=== PATIENT | female | born 1945 | race Caucasian/White ===

== ENCOUNTER → 2020-08-16 | Outpatient (CLI) | payer MEDICARE, OTHER ==
[2019-11-11 14:44] VITALS: BP 106/59
[~2020-08-16] MED LIST: ACET500T68 PO; ALPR0.5T6 PO; CHOL40003 PO; CITA40TA5 PO; CLONAZEPAM1 MG PO; COLE1TAB2 PO; CRESTOR40 MG PO; DICL75TA PO; DICY10CA3 PO; DOXY100C2 PO; ESTR-113 PO; FENO145T3 PO; FENO43CA5 PO; FLECTOR1 EACH TD; LACT1CAP19 PO; LEVO75TA90 PO; LEVO88TA4 PO; LIDO700A4 TP; LORA10CA PO; MECL-75 PO; MELA5TAB20 PO; METF500T16 PO; METH5TAB2 PO; MONT10TA49 PO; NITR100C PO; OMEG1CAP2 PO; OMEP20TA63 PO; OMEP40CA45 PO; OXYB5TAB10 PO; OXYC20TA34 PO; OXYM30SP25 NS; PARO20TA3 PO; PITA2TAB2 PO; ROPI1TAB4 PO; ZOLP10TA4 PO; b12 shot IM
--- NOTE | 2020-08-16 15:59 | KCIC ---
EXAM: Chest, 2 views. HISTORY: Dyspnea. COMPARISON: 11/06/2019 FINDINGS: 2 views of the chest are obtained. There has been slight interval increase in lower lobe pr edominant multifocal interstitial infiltrate. There is no pleural effusion or pneumothorax. The heart is normal in size. IMPRESSION: Bilateral lower lobe predominant multifocal interstitial infiltrate. Electronically signed by: Pretty Kwok MD (08/16/2020 3:57 PM) [id number]
== END ==
LOC: KCIC 15:31
PROVIDERS: ATTEND Family Medicine
DX: J84.9 Interstitial pulmonary disease, unspecified (principal); R06.00 Dyspnea, unspecified
CPT/HCPCS: 71046

== ENCOUNTER → 2020-09-15 | Outpatient (CLI) | payer MEDICARE, OTHER ==
[2019-11-11 14:44] VITALS: BP 106/59
--- NOTE | 2020-09-15 15:21 | CARD ---
MR#: [id number] Date of Study: 09/15/2020 Ordering Physician: ARIA ONTIVEROS, Referring Physician: ARIA ONTIVEROS, Tech: Christine To RDCS APPROVED REPORT EXAM: Two-dimensional and M-mode echocardiogram with Doppler and color Doppler. Other Information Quality : Good INDICATION Lung Infiltrates; Post Covid RISK FACTORS Hyperlipidemia Diabetes 2D DIMENSIONS RVDd2.7 (2.9-3.5cm)Left Atrium(2D)3.3 (1.6-4.0cm) IVSd0.9 (0.7-1.1cm)Aortic Root(2D)2.7 (2.0-3.7cm) LVDd3.8 (3.9-5.9cm)LVOT Diameter2.0 (1.8-2.4cm) PWd0.9 (0.7-1.1cm)LVDs2.9 (2.5-4.0cm) FS (%) 30.0 %SV28.0 ml LVEF(%)60.0 (>50%) Aortic Valve AoV Peak Garrick.125.0cm/sAoV VTI21.1cm AO Peak GR.6.2mmHgLVOT Peak Garrick.98.6cm/s AO Mean GR.3mmHgAVA (VMAX)2.38cm2 Mitral Valve MV E Znjrloho16.4cm/sMV DECEL HABT393de MV A Mdnkalkv21.7cm/sE/A Ratio0.9 Tricuspid Valve TR P. Glkdjwaf043sd/sRAP PBRUZZJQ7hbTu TR Peak Gr.34wiKaIGSI80bnJt Pulmonary Vein S1 Ozzfdyyz96.3cm/sD2 Zpdscfan32.1cm/s LEFT VENTRICLE The left ventricle is normal size. There is normal left ventricular wall thickness. The left ventricu lar systolic function is normal and the ejection fraction is within normal range. The Ejection Fracti on is 55-60%. There is normal LV segmental wall motion. Transmitral Doppler flow pattern is Grade I-a bnormal relaxation pattern. RIGHT VENTRICLE The right ventricle is normal size. The right ventricular systolic function is normal. ATRIA The left atrium size is normal. The right atrium size is normal. The interatrial septum is intact wit h no evidence for an atrial septal defect or patent foramen ovale as noted on 2-D or Doppler imaging. AORTIC VALVE The aortic valve is calcified but opens well. Doppler and Color Flow revealed no significant aortic r egurgitation. There is no significant aortic valvular stenosis. MITRAL VALVE The mitral valve is calcified but opens well. Mitral annular calcification is mild. There is no evide nce of mitral valve prolapse. There is no mitral valve stenosis. Doppler and Color-flow revealed trac e to mild mitral regurgitation. TRICUSPID VALVE The tricuspid valve is normal in structure and function. Doppler and Color Flow revealed trace to mil d tricuspid regurgitation. There is moderate pulmonary hypertension. The PA pressure was estimated at 43 mmHg. There is no tricuspid valve stenosis. PULMONIC VALVE The pulmonic valve is not well visualized. Doppler and Color Flow revealed trace pulmonic valvular re gurgitation. There is no pulmonic valvular stenosis. GREAT VESSELS The aortic root is normal in size. The ascending aorta is normal in size. The IVC is normal in size a nd collapses >50% with inspiration. PERICARDIAL EFFUSION There is no evidence of significant pericardial effusion. Critical Notification Critical Value: No <Conclusion> The left ventricle is normal size. The left ventricular systolic function is normal and the ejection fraction is within normal range. The Ejection Fraction is 55-60%. There is normal LV segmental wall motion. Doppler and Color Flow revealed no significant aortic regurgitation. There is no significant aortic valvular stenosis. Doppler and Color-flow revealed trace to mild mitral regurgitation. Doppler and Color Flow revealed trace to mild tricuspid regurgitation. There is moderate pulmonary hypertension. The PA pressure was estimated at 43 mmHg. Signed by : Adria Briceno MD Electronically Approved : 09/15/2020 15:21:11
== END ==
LOC: ECHO 13:39
PROVIDERS: ATTEND Family Medicine
DX: I08.3 Combined rheumatic disorders of mitral, aortic and tricuspid valves (principal); I27.20 Pulmonary hypertension, unspecified; R91.8 Other nonspecific abnormal finding of lung field
CPT/HCPCS: 93306

== ENCOUNTER 2021-01-08 19:23 | Inpatient (IN) | payer MEDICARE, OTHER ==
[~2021-01-08] VITALS: Ht 149.9 cm; Wt 69.5 kg
[~2021-01-08 19:23] MED LIST changes: -OMEP40CA45 PO; +OMEP40CA7 PO
[2021-01-08] MEDS ORDERED: methylPREDNISolone SOD SUCC PF 125 MG/2 ML VIAL. IV ONE (21:15)
[2021-01-08] MEDS ORDERED: ONDANSETRON PF 4 MG/2 ML VIAL. IVP ONE ×2 (21:15→23:45)
[2021-01-08] MEDS: IV NORMAL SALINE 1000ML BAG 1,000 ML IV SCH (21:23)
[2021-01-08] MEDS: fentaNYL PF VIAL 100 MCG/2 ML VIAL IV PRN ×2 (21:24→23:42)
--- NOTE | 2021-01-08 21:24 | RAD ---
XR CHEST 1V 01/08/2021 9:17 PM INDICATION: Nausea and vomiting COMPARISON: 08/16/2020 TECHNIQUE: Portable frontal view of the chest is provided. FINDINGS: The cardiomediastinal silhouette is within normal limits. Lungs are clear. Chronic elevation left hem idiaphragm with adjacent subsegmental atelectasis or scarring. There are no significant pleural effusions. There is no pulmonary vascular congestion. No pneumothora x. No suspicious osseous abnormality. IMPRESSION: There is no acute cardiopulmonary process. Electronically signed by: Radha Lamas MD (01/08/2021 9:22 PM) [facility]
[2021-01-08 21:41] LABS: BASO # 0.1 x10^3/uL (0.0-0.2); BASO % 1 % (0-3); EOS % 0 % (0-3); HEMATOCRIT 40.2 % (36.0-47.0); HEMOGLOBIN 13.2 g/dL (12.0-15.5); LYMPH # 2.3 x10^3/uL (1.0-4.8); LYMPH % 18 % (24-48); MEAN CORPUSCULAR HEMOGLOBIN 26 pg (25-35); MEAN CORPUSCULAR HGB CONC 33 g/dL (31-37); MEAN CORPUSCULAR VOLUME 80 fL (79-100); MONO # 0.8 x10^3/uL (0.0-1.1); MONO % 6 % (0-9); NEUT # 9.5 x10^3/uL (1.8-7.7); NEUT % 75 % (31-73); PLATELET COUNT 329 x10^3/uL (140-400); RED BLOOD COUNT 5.02 x10^6/uL (3.50-5.40); RED CELL DISTRIBUTION WIDTH 16.3 % (11.5-14.5); WHITE BLOOD COUNT 12.8 x10^3/uL (4.0-11.0)
[2021-01-08 21:55] LABS: CALCIUM 9.7 mg/dL (8.5-10.1); CREATININE 0.8 mg/dL (0.6-1.0); GFR 69.6; POTASSIUM 3.6 mmol/L (3.5-5.1)
[2021-01-08 22:00] LABS: ALBUMIN 3.8 g/dL (3.4-5.0); ALBUMIN/GLOBULIN RATIO 0.7 (1.0-1.7); MAGNESIUM 1.8 mg/dL (1.8-2.4); TOTAL BILIRUBIN 0.3 mg/dL (0.2-1.0)
[2021-01-08 22:22] LABS: BILIRUBIN,URINE NEGATIVE (NEG); CLARITY,URINE CLEAR; COLOR,URINE YELLOW; NITRITE,URINE NEGATIVE (NEG); PROTEIN,URINE NEGATIVE (NEG-TRACE); UROBILINOGEN,URINE 0.2 mg/dL (0.2 mg/dL)
--- NOTE | 2021-01-08 22:24 | PHYS DOC ---
Past Medical History Past Medical History: Anxiety, Asthma, GERD, High Cholesterol, Hypertension, Hypothyroid, Other Additional Past Medical Histor: stenosis; back pain (ERA DELGADO PATENT SEARCHER) Past Surgical History: Hysterectomy, Tonsillectomy, Other Additional Past Surgical Histo: partial thyroidectomy; back (ERA DELGADO PATENT SEARCHER) Smoking Status: Never Smoker Alcohol Use: None Drug Use: None (ERA DELGADO PATENT SEARCHER) General Adult EDM: Chief Complaint: ABDOMINAL PAIN HPI: HPI: Patient is a 75 year old female with a history of hypertension, high cholesterol, anxiety, acid reflux, who presents to the ED today from home with the daughter, daughter states patient has very feeling unwell since December 29 with complaints of intermittent 6 out of 10 forehead headaches, bilateral upper abdominal pain. Daughter states patient started complaining of dry heaving yesterday, patient was seen by the PCP who requested him to come to the ED today if symptoms persist for more extensive work-up. Patient states today she developed nausea, vomiting and diarrhea and has continued to have the abdominal pain and headache. Patient denies any neck rigidity, fever. Reports receiving 99Presents Covid vaccine 2 doses in October. (ERA DELGADO Evita PATENT SEARCHER) Review of Systems: Review of Systems: Constitutional: Denies fever or chills. [] Eyes: Denies change in visual acuity. [] HENT: Denies nasal congestion or sore throat. [] Respiratory: Denies cough or shortness of breath. [] Cardiovascular: Denies chest pain or edema. [] GI: Reports abdominal pain, nausea vomiting and diarrhea, denies any hematemesis or melena : Denies dysuria. [] Musculoskeletal: Denies back pain or joint pain. [] Integument: Denies rash. [] Neurologic: Reports headaches, denies focal weakness or sensory changes. [] Psychiatric: Denies depression or anxiety. [] (ERA DELGADO Evita PATENT SEARCHER) Heart Score: C/O Chest Pain: N/A Risk Factors: Risk Factors: DM, Current or recent (<one month) smoker, HTN, HLP, family history of CAD, obesity. Risk Scores: Score 0 - 3: 2.5% MACE over next 6 weeks - Discharge Home Score 4 - 6: 20.3% MACE over next 6 weeks - Admit for Clinical Observation Score 7 - 10: 72.7% MACE over next 6 weeks - Early Invasive Strategies (ERA DELGADO Evita PATENT SEARCHER) Current Medications: Current Medications Medications (Trade) Dose Ordered Sig/[facility] Start Time Stop Time Status Last Admin Dose Admin Fentanyl Citrate (Fentanyl 2ml Vial) 25 mcg PRN Q15MIN PRN 01/08/21 21:15 01/09/21 21:14 01/08/21 21:24 25 MCG Methylprednisolone Sodium Succinate (SOLU-Medrol 125MG VIAL) 125 mg 1X ONCE 01/08/21 21:15 01/08/21 21:16 DC 01/08/21 21:24 125 MG Ondansetron HCl (Zofran) 4 mg 1X ONCE 01/08/21 21:15 01/08/21 21:16 DC 01/08/21 21:23 4 MG Sodium Chloride 1,000 ml @ 2,100 mls/hr Q29M 01/08/21 21:15 01/08/21 22:15 DC 01/08/21 21:23 2,100 MLS/HR (ERA DELGADO Evita PATENT SEARCHER) Allergies: Allergies: Allergies Coded Allergies Type Severity Reaction Last Updated Verified No Known Drug Allergies 11/11/13 No (ERA DELGADO Evita PATENT SEARCHER) Physical Exam: PE: Constitutional: Well developed, well nourished, no acute distress, non-toxic appearance. [] HENT: Normocephalic, atraumatic, bilateral external ears normal, oropharynx moist, no oral exudates, nose normal. [] Eyes: PERRLA, EOMI, conjunctiva normal, no discharge. [] Neck: Old healed surgical incision noted midline cervical spine. Normal range of motion, no tenderness, supple, no stridor. No nuchal rigidity. Cardiovascular:Heart rate regular rhythm, no murmur [] Lungs & Thorax: Bilateral breath sounds clear to auscultation [] Abdomen: Bowel sounds normal, soft, no tenderness, no masses, no pulsatile masses. [] Skin: Warm, dry, no erythema, no rash. [] Back: No tenderness, no CVA tenderness. [] Extremities: No tenderness, no cyanosis, no clubbing, ROM intact, no edema. [] Neurologic: Alert and oriented X 3, normal motor function, normal sensory function, no focal deficits noted. [] Psychologic: Affect normal, judgement normal, mood normal. [] (ERA DELGADO APRN) Current Patient Data: Labs: Laboratory Tests Test 01/08/21 21:30 White Blood Count 12.8 x10^3/uL (4.0-11.0) H Red Blood Count 5.02 x10^6/uL (3.50-5.40) Hemoglobin 13.2 g/dL (12.0-15.5) Hematocrit 40.2 % (36.0-47.0) Mean Corpuscular Volume 80 fL (79-100) Mean Corpuscular Hemoglobin 26 pg (25-35) Mean Corpuscular Hemoglobin Concent 33 g/dL (31-37) Red Cell Distribution Width 16.3 % (11.5-14.5) H Platelet Count 329 x10^3/uL (140-400) Neutrophils (%) (Auto) 75 % (31-73) H Lymphocytes (%) (Auto) 18 % (24-48) L Monocytes (%) (Auto) 6 % (0-9) Eosinophils (%) (Auto) 0 % (0-3) Basophils (%) (Auto) 1 % (0-3) Neutrophils # (Auto) 9.5 x10^3/uL (1.8-7.7) H Lymphocytes # (Auto) 2.3 x10^3/uL (1.0-4.8) Monocytes # (Auto) 0.8 x10^3/uL (0.0-1.1) Eosinophils # (Auto) 0.0 x10^3/uL (0.0-0.7) Basophils # (Auto) 0.1 x10^3/uL (0.0-0.2) Sodium Level 141 mmol/L (136-145) Potassium Level 3.6 mmol/L (3.5-5.1) Chloride Level 104 mmol/L (98-107) Carbon Dioxide Level 26 mmol/L (21-32) Anion Gap 11 (6-14) Blood Urea Nitrogen 14 mg/dL (7-20) Creatinine 0.8 mg/dL (0.6-1.0) Estimated GFR (Cockcroft-Gault) 69.6 BUN/Creatinine Ratio 18 (6-20) Glucose Level 126 mg/dL (70-99) H Lactic Acid Level 1.3 mmol/L (0.4-2.0) Calcium Level 9.7 mg/dL (8.5-10.1) Magnesium Level 1.8 mg/dL (1.8-2.4) Total Bilirubin 0.3 mg/dL (0.2-1.0) Aspartate Amino Transferase (AST) 45 U/L (15-37) H Alanine Aminotransferase (ALT) 59 U/L (14-59) Alkaline Phosphatase 71 U/L (46-116) Troponin I Quantitative < 0.017 ng/mL (0.000-0.055) YA-Zal-P-Type Natriuretic Peptide 59 pg/mL (0-449) Total Protein 9.0 g/dL (6.4-8.2) H Albumin 3.8 g/dL (3.4-5.0) Albumin/Globulin Ratio 0.7 (1.0-1.7) L Lipase 45 U/L (73-393) L Procalcitonin < 0.10 ng/mL (0.00-0.10) Thyroid Stimulating Hormone (TSH) 0.418 uIU/mL (0.358-3.74) Laboratory Tests 01/08/21 21:30 Laboratory Tests 01/08/21 21:30 Vital Signs: Vital Signs Date Time Temp Pulse Resp B/P (MAP) Pulse Ox O2 Delivery O2 Flow Rate FiO2 01/08/21 21:24 98 Room Air 01/08/21 19:40 146/78 (100) (ERA DELGADO [facility]) EKG: EK interpreted by Dr. Madison sinus rhythm heart rate 93 no STEMI [] (ERA DELGADO [facility]) Radiology/Procedures: Radiology/Procedures: []PROCEDURE: PORTABLE CHEST 1V XR CHEST 1V 01/08/2021 9:17 PM INDICATION: Nausea and vomiting COMPARISON: 08/16/2020 TECHNIQUE: Portable frontal view of the chest is provided. FINDINGS: The cardiomediastinal silhouette is within normal limits. Lungs are clear. Chronic elevation left hemidiaphragm with adjacent subsegmental atelectasis or scarring. There are no significant pleural effusions. There is no pulmonary vascular congestion. No pneumothorax. No suspicious osseous abnormality. IMPRESSION: There is no acute cardiopulmonary process. Electronically signed by: Adilia Tolbert MD (01/08/2021 9:22 PM) [facility] DICTATED and SIGNED BY: ADILIA TOLBERT MD DATE: 01/08/21 [id number] 0 (ERA DELGADO PATENT SEARCHER) Radiology/Procedures: IMAGING REPORT Signed PATIENT: HIRAL PATEL ACCOUNT: [id number] : 1945 LOCATION: ER AGE: 75 SEX: F EXAM STATUS: REG ER ORD. PHYSICIAN: GARRETT MADISON DO REASON: midline abd pain/n/v, r/o aaa PROCEDURE: CT ABD PELV W/ IV CONTRST ONLY CT abdomen and pelvis with contrast: Reason for examination: Midline abdominal pain with nausea and vomiting. Evaluate for abdominal aortic aneurysm. Helical images were obtained through the abdomen pelvis with intravenous administration of 75 cc Omnipaque 300. Reconstruction was performed in sagittal and coronal planes. Exposure: One or more of the following individualized dose reduction techniques were utilized for this examination: 1. Automated exposure control 2. A djustment of the mA and/or kV according to patient size 3. Use of iterative reconstruction technique. There are changes consistent with atelectasis bilaterally at the lung bases but there is also suggestion of some mild hazy infiltrates posterior medially at the left lower lobe. The heart size is normal with no pericardial effusion. No abnormality seen at the liver, gallbladder, spleen, adrenal glands or pancreas. The abdominal aorta and inferior vena cava show no acute abnormalities but there is some arteriosclerotic vascular calcification. The colon shows no diverticulosis, diverticulitis or colitis. The appendix is not identified but no secondary signs of appendicitis are evident. The small intestinal tract shows no abnormal dilatation, wall thickening or obstruction. No abnormality seen at the stomach or duodenum. The kidneys show no renal masses, renal calculi, hydronephrosis or evidence of obstructive uropathy. No abnormality seen at the bladder or vaginal cuff. No free fluid or free air seen in the abdomen or pelvis. There are postop changes at the L4-5 disc level. There is a mild lumbar scoliosis and there are degenerative changes present in the lumbar spine. No acute bony abnormalities are evident. IMPRESSION: No evidence of abdominal aortic aneurysm. Atelectasis at both lung bases as well as some mild patchy infiltrate posterior medially at the left lung base. Severe degenerative changes in the lumbar spine. Electronically signed by: Corin Dalton MD (01/09/2021 12:55 AM) [facility] DICTATED and SIGNED BY: CORIN DALTON MD DATE: 01/09/21 [id number] 0 IMAGING REPORT Signed PATIENT: HIRAL PATEL ACCOUNT: [id number] : 1945 LOCATION: ER AGE: 75 SEX: F EXAM STATUS: REG ER ORD. PHYSICIAN: ERA DELGADO APRN REASON: headache PROCEDURE: CT HEAD WO CONTRAST CT head without contrast: Reason for examination: Headache. Comparison is made to previous study dated 02/02/2016. Helical images were obtained through the brain with no contrast administered. Reconstruction was performed in coronal plane. Exposure: One or more of the following individualized dose reduction techniques were utilized for this examination: 1. Automated exposure control 2. Adjustment of the mA and/or kV according to patient size 3. Use of iterative reconstruction technique. Ventricular systems are dilated but symmetric and not changed significantly from previous exam. No midline shift is seen. There is some cerebral atrophy. There is some patchy deep white matter changes in the frontal and parietal lobes consistent with microvascular ischemia. No intracranial hemorrhage, acute infarct, mass or edema is evident. Basal ganglia calcification is seen. No abnormalities are seen at the orbits. The paranasal sinuses and mastoid air cells are clear. No acute skull abnormality is seen. IMPRESSION: Cerebral atrophy is some patchy microvascular ischemic type changes bilaterally. Basal ganglia calcifications. No acute intracranial abnormality evident. Electronically signed by: Corin Dalton MD (01/08/2021 11:08 PM) [facility] DICTATED and SIGNED BY: CORIN DALTON MD DATE: 01/08/21 [id number] 0 IMAGING REPORT Signed PATIENT: HIRAL PATEL ACCOUNT: [id number] : 1945 LOCATION: ER AGE: 75 SEX: F EXAM STATUS: REG ER ORD. PHYSICIAN: ERA DELGADO PATENT SEARCHER REASON: n/v PROCEDURE: PORTABLE CHEST 1V XR CHEST 1V 01/08/2021 9:17 PM INDICATION: Nausea and vomiting COMPARISON: 08/16/2020 TECHNIQUE: Portable frontal view of the chest is provided. FINDINGS: The cardiomediastinal silhouette is within normal limits. Lungs are clear. Chronic elevation left hemidiaphragm with adjacent subsegmental atelectasis or scarring. There are no significant pleural effusions. There is no pulmonary vascular congestion. No pneumothorax. No suspicious osseous abnormality. IMPRESSION: There is no acute cardiopulmonary process. Electronically signed by: Adilia Tolbert MD (01/08/2021 9:22 PM) [facility] DICTATED and SIGNED BY: ADILIA TOLBERT MD DATE: 01/08/[id number] 0 (GARRETT MADISON DO) Course & Med Decision Making: Course & Med Decision Making Pertinent Labs and Imaging studies reviewed. (See chart for details) This is a 75-year-old female patient presenting to the ED today with headache and abdominal pain, symptoms since December 29. Dry heaving since yesterday with nausea vomiting and diarrhea today. Was seen by the PCP yesterday and sent to the ED EKG is negative, chest x-ray is negative. CBC with a WBC of 12.8. CMP with nothing really acute. [address] madison pending CT of the head and abdomen (ERA DELGADO APRN) Course & Med Decision Making Concern for intractable nausea and vomiting in the setting of abdominal pain. Patient with persistent nausea& vomiting after 2 antiemetic doses. Third antiemetic ordered by myself. CT/labs/ed workup discussed with Dr. Ontiveros - patient has known GERD, will treat symptoms and admit for serial abdominal exams. Patient stable at time of admission and she agrees with this plan. Her daughter is at bedside, (patient consents to his/her/their knowledge and involvement in pts' medical care), I have spoken with the patient and/or caregivers. I have explained the patient's condition, diagnosis and treatment plan based on the information available to me at this time. I have answered the patient's and/or caregivers questions and answered any concerns. The patient and/or caregivers have as good an understanding of the patient's diagnosis, condition and treatment plan as can be expected at this point. The patient has been stabilized within the capability of the emergency department. The patient will be transported for further care and management or will be moved to an observation or inpatient service. I have communicated with the staff or medical practitioner taking over this patient's care. (GARRETT MADISON DO) Dragon Disclaimer: Dragon Disclaimer: This electronic medical record was generated, in whole or in part, using a voice recognition dictation system. (ERA DELGADO APRN) Departure Departure Impression: Primary Impression: Intractable nausea and vomiting Additional Impressions: Headache Abdominal pain Disposition: ADMITTED INPATIENT Admitting Physician: Aria Ontiveros (GARRETT MADISON DO) Condition: STABLE Referrals: ARIA ONTIVEROS MD (PCP) ERA DELGADO APRN Jan 08, 2021 22:24 GARRETT MADISON DO Jan 09, 2021 01:28
[2021-01-08 22:37] LABS: BACTERIA,URINE 0 /HPF (0-FEW); RBC,URINE 0 /HPF (0-2)
[2021-01-08 22:38] LABS: WBC,URINE OCC /HPF (0-4)
--- NOTE | 2021-01-08 23:10 | RAD ---
CT head without contrast: Reason for examination: Headache. Comparison is made to previous study dated 02/02/2016. Helical images were obtained through the brain with no contrast administered. Reconstruction was perf ormed in coronal plane. Exposure: One or more of the following individualized dose reduction techniques were utilized for thi s examination: 1. Automated exposure control 2. Adjustment of the mA and/or kV according to patient size 3. Use of iterative reconstruction technique. Ventricular systems are dilated but symmetric and not changed significantly from previous exam. No mi dline shift is seen. There is some cerebral atrophy. There is some patchy deep white matter changes i n the frontal and parietal lobes consistent with microvascular ischemia. No intracranial hemorrhage, acute infarct, mass or edema is evident. Basal ganglia calcification is seen. No abnormalities are se en at the orbits. The paranasal sinuses and mastoid air cells are clear. No acute skull abnormality i s seen. IMPRESSION: Cerebral atrophy is some patchy microvascular ischemic type changes bilaterally. Basal ganglia calcifications. No acute intracranial abnormality evident. Electronically signed by: Ila Lawrence MD (01/08/2021 11:08 PM) [facility]
[2021-01-09] MEDS ORDERED: IOHEXOL 300 MG/ML 100ML VIAL. IV ONE
--- NOTE | 2021-01-09 00:07 | EKG ---
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
[2021-01-09] MEDS ORDERED: CONTRAST GIVEN. MC PRN (00:15)
[2021-01-09] MEDS: fentaNYL PF VIAL 100 MCG/2 ML VIAL IV PRN ×2 (00:55→02:54)
--- NOTE | 2021-01-09 00:57 | RAD ---
CT abdomen and pelvis with contrast: Reason for examination: Midline abdominal pain with nausea and vomiting. Evaluate for abdominal aorti c aneurysm. Helical images were obtained through the abdomen pelvis with intravenous administration of 75 cc Omni paque 300. Reconstruction was performed in sagittal and coronal planes. Exposure: One or more of the following individualized dose reduction techniques were utilized for thi s examination: 1. Automated exposure control 2. Adjustment of the mA and/or kV according to patient size 3. Use of iterative reconstruction technique. There are changes consistent with atelectasis bilaterally at the lung bases but there is also suggest ion of some mild hazy infiltrates posterior medially at the left lower lobe. The heart size is normal with no pericardial effusion. No abnormality seen at the liver, gallbladder, spleen, adrenal glands or pancreas. The abdominal aort a and inferior vena cava show no acute abnormalities but there is some arteriosclerotic vascular calc ification. The colon shows no diverticulosis, diverticulitis or colitis. The appendix is not identifi ed but no secondary signs of appendicitis are evident. The small intestinal tract shows no abnormal d ilatation, wall thickening or obstruction. No abnormality seen at the stomach or duodenum. The kidney s show no renal masses, renal calculi, hydronephrosis or evidence of obstructive uropathy. No abnormality seen at the bladder or vaginal cuff. No free fluid or free air seen in the abdomen or pelvis. There are postop changes at the L4-5 disc level. There is a mild lumbar scoliosis and there a re degenerative changes present in the lumbar spine. No acute bony abnormalities are evident. IMPRESSION: No evidence of abdominal aortic aneurysm. Atelectasis at both lung bases as well as some mild patchy infiltrate posterior medially at the left lung base. Severe degenerative changes in the lumbar spine. Electronically signed by: Ila Lawrence MD (01/09/2021 12:55 AM) [facility]
[2021-01-09] MEDS ORDERED: METOCLOPRAMIDE HCL 10 MG/2 ML VIAL. IVP ONE (02:15)
[2021-01-09] MEDS ORDERED: IV NORMAL SALINE 1000ML BAG 1,000 ML IV ONE (02:15)
[2021-01-09] MEDS ORDERED: FAMOTIDINE 20 MG/2 ML VIAL IVP ONE (02:15)
[2021-01-09] MEDS ORDERED: cefTRIAXone IV Push 1 GM VIAL. IVP ONE (02:15)
[2021-01-09] MEDS ORDERED: AZITHRMYCN 500MG IVPB FOR OMNI 250 ML IV ONE (02:15)
[2021-01-09] MEDS: IV NORMAL SALINE 1000ML BAG 1,000 ML IV SCH (02:49)
[2021-01-09 07:00] VITALS: BP 133/74
[2021-01-09] MEDS ORDERED: diphenhydrAMINE HCL 25 MG CAPSULE PO PRN (08:30)
[2021-01-09] MEDS ORDERED: MONTELUKAST SODIUM 10 MG TABLET. PO SCH (09:00)
[2021-01-09] MEDS ORDERED: MORPHINE SULFATE 2 MG/ML VIAL. IV PRN (09:00)
--- NOTE | 2021-01-09 09:33 | PDOC ---
Provider Note Date of Service: DATE: 01/09/21 TIME: 09:31 Provider Note [id number] Justifications for Admission Other Justification ARIA ONTIVEROS MD Jan 09, 2021 09:33
[2021-01-09] MEDS ORDERED: BUPR150T21 PO (10:16)
--- NOTE | 2021-01-09 10:58 | HP ---
ADMIT DATE: 01/09/2021 CHIEF COMPLAINT: Vomiting and abdominal pain. HISTORY OF PRESENT ILLNESS: This is a 75-year-old white female who has had upper and mid abdominal pain for the last 4 or 5 days with intractable nausea and vomiting for the last 24 hours. The source of this is not cleared and she has had no fever, chills, sputum production, blood in her stool or emesis, urinary tract symptoms or other complaints. She states she has been taking her meds as scheduled. She had labs and CT scan all of which were unremarkable in the ER. PAST HISTORY: MEDICATIONS: Multiple meds listed per the chart. She takes methadone 5 mg twice a day. ALLERGIES: No allergies to drugs are known. SOCIAL HISTORY: Lives with family. Nonsmoker, nondrinker, not physically active. FAMILY HISTORY: Unremarkable. REVIEW OF SYSTEMS: No other complaints. OBJECTIVE: ENT: All within normal limits. Hydration appears to be normal. No icterus is seen. NECK: No nodes, masses, or thyroid enlargement. LUNGS: Clear without tachypnea. CARDIOVASCULAR: Regular rate. No tachycardia is noted. ABDOMEN: Really benign, nontender. Good bowel sounds. No masses are felt. EXTREMITIES: Good pedal and radial pulses. No joint or skin lesions. NEUROLOGIC: Physiologic. Affect flat, but normal for her. No focal findings. Gait was not tested. ASSESSMENT: Persistent nausea, vomiting and some abdominal pain, etiology is not clear at this time. PLAN: IV morphine to replace oral methadone, IV fluid hydration, bowel rest and observation. IDALMIS DR: Will TID: [id number]
[2021-01-09 11:00] VITALS: BP 123/64
[2021-01-09] MEDS: POTASSIUM CL 20MEQ D5-0.45NACL 1,000 ML IV SCH ×2 (11:19→23:06)
[2021-01-09] MEDS: PANTOPRAZOLE IV PUSH 40 MG VIAL. IVP SCH (11:19)
[2021-01-09] MEDS ORDERED: MORPHINE SULFATE 4 MG/ML VIAL. IVP PRN (11:45)
[2021-01-09] MEDS ORDERED: CITALOPRAM 20 MG TABLET. PO SCH (12:00)
[2021-01-09] MEDS: ONDANSETRON PF 4 MG/2 ML VIAL. IVP PRN (12:42)
[2021-01-09 15:00] VITALS: BP 120/61
[2021-01-09 19:00] VITALS: BP 108/72
[2021-01-09 22:43] VITALS: BP 137/71
[2021-01-09] MEDS: MAG HYDROX/ALUMINUM HYD/SIMETH 30 ML ORAL.SUSP PO PRN (23:28)
[2021-01-10] MEDS: METHADONE 5 MG TABLET. PO SCH ×3 (00:48→21:41)
[2021-01-10 02:53] VITALS: BP 133/63
[2021-01-10 07:00] VITALS: BP 148/68
--- NOTE | 2021-01-10 08:28 | PDOC ---
Provider Note Date of Service: DATE: 01/10/21 TIME: 08:27 Provider Note vss, no temp, abd pain less , no emesis, but nausea persaists- exam same, abd soft, labs good- will try cl diet gi consult as source of nausea not clear- back on home methadone dose, off morphine Justifications for Admission Other Justification ARIA ONTIVEROS MD Jan 10, 2021 08:28
[2021-01-10] MEDS: POTASSIUM CL 20MEQ D5-0.45NACL 1,000 ML IV SCH ×3 (08:47→23:06)
[2021-01-10] MEDS: PANTOPRAZOLE IV PUSH 40 MG VIAL. IVP SCH (08:51)
--- NOTE | 2021-01-10 09:56 | PDOC2 ---
GI CONSULT Date of Service: DATE: 01/10/21 TIME: 09:56 Reason For Consult: nausea HPI: HPI: 75 y/o female who has been ill w/ n/v, vague upper abd discomfort ("just shiva sore"), and diarrhea (though none since Sat). No precipitating events. Feels nauseated all the time - "clear" emesis this morning. H/o GERD on a pill but doesn't remember what (though omeprazole on summary list). No dysphagia, usually no issues w/ n/v or diarrhea, no hematemesis, no hematochezia or melena, no weight loss. EGD for dysphagia 04/2020 showed mild distal esophagitis (biopsy c/w reflux, no Calderon's) w/ associated esopahgeal narrowing (dilated 56Fr), erosive gastritis (negative for H. pylori and intestinal metaplasia), and normal duodenum. Also had EGD in 2009 w/ benign intrinsic esophageal stenosis (dilated), reflux esophagitis (no Calderon's), H. pylori negative gastritis, and normal duodenal biopsies. Colonoscopy 11/2014: two hyperplastic polyops in recto-sigmoid colon, normal mucosa throughout entire colon, internal hemorrhoids. Did have two adenomatous polyps on colonoscopy in 2003. No GB, liver, pancreas, or PUD history. On methadone. Summary list includes diclofenac - she doesn't know if she takes this. Taker meclizine - "my neck was messed up." PMH: PMH: HTN, hypothyroidism, depression/anxiety, chronic pain, cervical stenosis, endometriosis, asthma partial thyroidectomy, tonsillectomy, hysterectomy, neck surgery FH: Family History: No pertinent hx (denies GI cancers) Social History: Smoke: No ALCOHOL: none Drugs: None ROS: GEN: Denies fevers, chills, sweats HEENT: Denies blurred vision, sore throat CV: Denies chest pain RESP: Denies shortness of air, cough GI: Per HPI : Denies hematuria, dysuria ENDO: Denies weight changes NEURO: +dizziness MSK: +weakness SKIN: Denies jaundice, pruritus Vitals: Vitals: Vital Signs Date Time Temp Pulse Resp B/P (MAP) Pulse Ox O2 Delivery O2 Flow Rate FiO2 01/10/21 08:51 18 Room Air 01/10/21 07:00 97.5 69 148/68 (94) 97 2.0 97.5 Allergies: Coded Allergies: No Known Drug Allergies (Unverified , 11/11/13) Medications: Current Medications Medications (Trade) Dose Ordered Sig/Christopher Route PRN Reason Start Time Stop Time Status Last Admin Dose Admin Pantoprazole Sodium (PROTONIX VIAL for IV PUSH) 40 mg DAILYAC IVP 01/09/21 10:30 01/10/21 08:51 Morphine Sulfate (Morphine Sulfate) 4 mg PRN Q6HRS PRN IVP PAIN 01/09/21 11:45 01/10/21 03:32 DC 01/09/21 11:47 Ondansetron HCl (Zofran) 4 mg PRN Q6HRS PRN IVP NAUSEA/VOMITING 01/09/21 12:30 01/09/21 12:42 Al Hydroxide/Mg Hydroxide (Mylanta Plus Xs) 30 ml PRN Q2HR PRN PO HEARTBURN / GAS 01/09/21 23:15 01/09/21 23:28 Methadone HCl (Dolophine) 5 mg BID PO 01/10/21 01:00 01/10/21 08:51 Imaging: Imaging: CXR IMPRESSION: There is no acute cardiopulmonary process. Head CT IMPRESSION: Cerebral atrophy is some patchy microvascular ischemic type changes bilaterally. Basal ganglia calcifications. No acute intracranial abnormality evident. CT A/P IMPRESSION: No evidence of abdominal aortic aneurysm. Atelectasis at both lung bases as well as some mild patchy infiltrate posterior medially at the left lung base. Severe degenerative changes in the lumbar spine. PE: GEN: was sleeping - speaks softly, appears weak - emesis basin w/ saliva HEENT: Atraumatic, PERRL LUNGS: CTAB HEART: RRR ABD: NABS, S/ND/NT EXTREMITY: No edema SKIN: No rashes, no jaundice NEURO/PSYCH: A & O 3, forgetful A/P: A/P: N/v, ?upper abd pain, diarrhea (?resolved) GERD - EGD 04/2020 as above, on PPI H/o dysphagia w/ past esophageal dilation - does not endorse today CRC screen - benign polyps in 2015 Hemorrhoids Methadone use H/o vertigo -- Labs and imaging on 01/08/21 unrevealing, though ongoing n/v. Getting IV PPI - would continue, consider BID dosing. Recheck labs. Has seen Dr. Lawrence in the past - reviewed w/ him - we will proceed w/ gallbladder testing. LENNY ORDONEZ Jan 10, 2021 09:56
[2021-01-10 11:00] VITALS: BP 147/85
--- NOTE | 2021-01-10 11:39 | NUR ---
SW following. Discussed with RN, pt from home with daughter, 2L (uses at home), clear liquid diet. GI following. RN ordering PT/OT. SW will continue to follow.
[2021-01-10] MEDS: ONDANSETRON PF 4 MG/2 ML VIAL. IVP PRN (13:36)
--- NOTE | 2021-01-10 14:51 | RAD ---
US ABDOMEN LIMITED History: Reason: Nausea and vomiting/ Spl. Instructions: / History: Comparison: CT January 09, 2021. Technique: Transabdominal ultrasound images are obtained of the right upper quadrant. Findings: Liver is normal in echogenicity. Right hepatic lobe measures 15.9 cm. Portal flow is hepatopedal. Gallbladder has an unremarkable appearance. Common bile duct measures 6 mm in diameter. Visualized pancreas unremarkable. The right kidney measures 11.3 x 4.4 x 4.6 cm. No hydronephrosis. Visualized portions of the aorta and IVC have normal caliber. IMPRESSION: 1. Unremarkable right upper quadrant ultrasound. Electronically signed by: Jamin Myers DO (01/10/2021 2:49 PM) [id number]
[2021-01-10 15:00] VITALS: BP 158/85
[2021-01-10] MEDS ORDERED: SINCALIDE IV ONE (15:30)
[2021-01-10] MEDS ORDERED: NORMAL SALINE IV ONE (15:30)
--- NOTE | 2021-01-10 16:37 | RAD ---
INDICATION: Reason: n/v / Spl. Instructions: / History: COMPARISON: Ultrasound from same day TECHNIQUE: 5.5mCi of Tc99m Choletec was injected intravenously followed by scintigraphic images of the abdomen. 1 mcg of CCK was then injected and a gallbladder ejection fraction was calculated. FINDINGS: Appropriate radiotracer clearance from the blood pool. Appropriate radiotracer excretion into the biliary tree. Prompt passage of contrast into the small bowel. Visualization of the gallbladder prior to the 60 minute time point. Gallbladder ejection fraction is 35 percent. IMPRESSION: 1. No scintigraphic evidence of acute cholecystitis or high grade biliary obstruction. 2. Borderline low gallbladder ejection fraction. Mild biliary dyskinesia not excluded. Electronically signed by: Rick Sutton MD (01/10/2021 4:35 PM) [id number]
--- NOTE | 2021-01-10 17:57 | NUR ---
Order had been obtained for pain medication, but patient declined it at this time, relating that she was now feeling better (had received ativan)
[2021-01-10 19:00] VITALS: BP 145/79
[2021-01-10 19:20] LABS: HEMATOCRIT 37.9 % (36.0-47.0); HEMOGLOBIN 12.2 g/dL (12.0-15.5); RED BLOOD COUNT 4.61 x10^6/uL (3.50-5.40); RED CELL DISTRIBUTION WIDTH 16.5 % (11.5-14.5); WHITE BLOOD COUNT 10.8 x10^3/uL (4.0-11.0)
[2021-01-10 19:37] LABS: ALBUMIN 3.2 g/dL (3.4-5.0); ALBUMIN/GLOBULIN RATIO 0.7 (1.0-1.7); CALCIUM 8.9 mg/dL (8.5-10.1); CREATININE 0.7 mg/dL (0.6-1.0); GFR 81.1; TOTAL BILIRUBIN 0.3 mg/dL (0.2-1.0); TOTAL PROTEIN 7.6 g/dL (6.4-8.2)
[2021-01-10 22:46] VITALS: BP 142/70
[2021-01-11] MEDS: ONDANSETRON PF 4 MG/2 ML VIAL. IVP PRN ×2 (00:48→08:44)
[2021-01-11 03:00] VITALS: BP 143/76
[2021-01-11 07:00] VITALS: BP 145/63
[2021-01-11] MEDS: PANTOPRAZOLE IV PUSH 40 MG VIAL. IVP SCH ×2 (08:24→18:48)
[2021-01-11] MEDS: METHADONE 5 MG TABLET. PO SCH ×2 (08:25→22:18)
[2021-01-11] MEDS: POTASSIUM CL 20MEQ D5-0.45NACL 1,000 ML IV SCH (08:30)
--- NOTE | 2021-01-11 08:33 | PDOC ---
Provider Note Date of Service: DATE: 01/11/21 TIME: 08:28 Provider Note states she feels better, but had emesis during last night- some Dominguez today, exam same/ vss- gb studies look ok- she has had STEVE in past, ? partail sb obstruction, will do sb series next, sxs dont sound like ulcer/gastric outlet to me Justifications for Admission Other Justification ARIA ONTIVEROS MD Jan 11, 2021 08:33
[2021-01-11] MEDS ORDERED: BARIUM SULFATE 60% 355 ML SUSP PO ONE (08:45)
--- NOTE | 2021-01-11 10:25 | PDOC ---
Date of Service: DATE: 01/11/21 TIME: 10: Objective: Objective: D/w Dr. Sutton - varying history from pt/nursing - more vomiting overnight and SBS ordered. Vital Signs: Vital Signs Date Time Temp Pulse Resp B/P (MAP) Pulse Ox O2 Delivery O2 Flow Rate FiO2 01/11/21 08:25 20 93 Nasal Cannula 2.0 01/11/21 07:00 97.6 75 145/63 (90) 97.6 Labs: Laboratory Tests Test 01/10/21 19:10 White Blood Count 10.8 x10^3/uL Red Blood Count 4.61 x10^6/uL Hemoglobin 12.2 g/dL Hematocrit 37.9 % Mean Corpuscular Volume 82 fL Mean Corpuscular Hemoglobin 26 pg Mean Corpuscular Hemoglobin Concent 32 g/dL Red Cell Distribution Width 16.5 % Platelet Count 285 x10^3/uL Sodium Level 140 mmol/L Potassium Level 4.0 mmol/L Chloride Level 105 mmol/L Carbon Dioxide Level 29 mmol/L Anion Gap 6 Blood Urea Nitrogen 9 mg/dL Creatinine 0.7 mg/dL Estimated GFR (Cockcroft-Gault) 81.1 BUN/Creatinine Ratio 13 Glucose Level 137 mg/dL Calcium Level 8.9 mg/dL Total Bilirubin 0.3 mg/dL Aspartate Amino Transf (AST/SGOT) 31 U/L Alanine Aminotransferase (ALT/SGPT) 39 U/L Alkaline Phosphatase 68 U/L Total Protein 7.6 g/dL Albumin 3.2 g/dL Albumin/Globulin Ratio 0.7 Imaging: RUQ US 01/10 IMPRESSION: 1. Unremarkable right upper quadrant ultrasound. HIDA 01/10 Gallbladder ejection fraction is 35 percent. IMPRESSION: 1. No scintigraphic evidence of acute cholecystitis or high grade biliary obstruction. 2. Borderline low gallbladder ejection fraction. Mild biliary dyskinesia not excluded. PE: out of room A/P: N/v - imaging/labs unrevealing so far - unclear cause GERD Borderline GB EF Chronic pain on methadone -- Out of room when I stopped by - will follow-up later today w/ pt and re: imaging results. Continue PPI, anti-emetics. Returned to see pt at 4:50 p.m. She and nurse say she is not better - ongoing vomiting. SBS was unremarkable. D/w Dr. Lawrence - we will plan for EGD tomorrow afternoon - pt agrees. She had COVID vaccine and says we have a copy of her card. Justicifation of Admission Dx: Justifications for Admission: Justification of Admission Dx: Yes LENNY ORDONEZ Jan 11, 2021 10:25
--- NOTE | 2021-01-11 10:56 | RAD ---
DG SMALL BOWEL FOLLOW THROUGH Indication: Reason: emesis, pain / Spl. Instructions: / History: . Comparison: CT January 09, 2021. Technique: Preliminary network control operator film of the abdomen was obtained. Then following ingestion of oral bariu m, serial images of the abdomen were obtained to assess progress of contrast throughout the small bow el. Once the contrast reached the colon, fluoroscopic evaluation of the small bowel, particularly the terminal ileum, was performed. Fluoroscopic Time: 0.6 minutes Number of Fluoroscopic Images: 7 Findings: The network control operator image demonstrates a nonobstructive bowel gas pattern. Advanced lumbar spondylosis with rig htward curvature. Mild colonic stool burden. Retained contrast noted within the esophagus on initial image. There are no distended small bowel loo ps. No strictures are seen. The small bowel fold pattern is unremarkable. Transit time was normal at 40 minutes (normal <120 minutes.) Normal peristalsis of bowel was observed on direct fluoroscopy. IMPRESSION: 1. Unremarkable small bowel series. Electronically signed by: Jamin Myers DO (01/11/2021 10:54 AM) [id number]
[2021-01-11] MEDS: KETOROLAC 15 MG/ML VIAL. IVP PRN (11:50)
--- NOTE | 2021-01-11 12:16 | NUR ---
SS following up with discharge planning. SS reviewed pt chart and discussed with pt RN. Pt is from home with daughter and is currently requiring oxygen at two liters nasal canula. Pt has home oxygen. PT/OT ordered. GI following. SS will continue to follow for discharge planning.
[2021-01-11 15:00] VITALS: BP 149/81
[2021-01-11 19:00] VITALS: BP 142/83
[2021-01-11 23:00] VITALS: BP 126/83
[2021-01-12] VITALS (7 sets, daily range): BP systolic 111–165; BP diastolic 78–90
[2021-01-12] MEDS: POTASSIUM CL 20MEQ D5-0.45NACL 1,000 ML IV SCH ×2 (01:30→21:28)
--- NOTE | 2021-01-12 08:34 | PDOC ---
Provider Note Date of Service: DATE: 01/12/21 TIME: 08:33 Provider Note vss, still nausea, emesis, sb series ok, albs ok- ? gastroaresis- does not sound like mesenteric ischemia sxs- egd next today Justifications for Admission Other Justification ARIA ONTIVEROS MD Jan 12, 2021 08:34
[2021-01-12] MEDS: PANTOPRAZOLE IV PUSH 40 MG VIAL. IVP SCH ×2 (09:08→17:39)
[2021-01-12] MEDS: KETOROLAC 15 MG/ML VIAL. IVP PRN (09:08)
[2021-01-12] MEDS: METHADONE 5 MG TABLET. PO SCH ×2 (09:09→21:25)
[2021-01-12] MEDS ORDERED: IV RINGERS,LACTATED 1000ML 1,000 ML IV ONE (12:30)
[2021-01-12] MEDS ORDERED: LIDOCAINE 2% PF 5 ML VIAL. ONE (13:09)
[2021-01-12] MEDS ORDERED: PROPOFOL 10 MG/ML (20ML) VIAL. IV ONE (13:09)
--- NOTE | 2021-01-12 13:28 | PDOC4 ---
PROCEDURE Procedure EGD n/v Anesthesia- propofol E- normal G- antral gastritis mild (bx) D- normal (bx) No source for n/v seen. Since SBS normal , so far, only clue is low GB EF%- may consider surgery consult if symptoms continue CATIE VILLEDA MD Jan 12, 2021 13:28
--- NOTE | 2021-01-12 14:30 | NUR ---
SS following up with discharge planning. SS reviewed pt chart and discussed with pt RN. Pt is currently requiring oxygen at two liters nasal canula. Pt has home oxygen. PT/OT ordered. OT recommended nursing home unit. SS met with pt and daughter in room to discuss discharge planning and nursing home unit. Pt and pt's daughter reported that pt will not go to nursing home unit. Pt's daughter reported that she is an OT and they want [facility], ; fax [phone]. SS will continue to follow for discharge planning.
[2021-01-12] MEDS: ONDANSETRON PF 4 MG/2 ML VIAL. IVP PRN (15:16)
[2021-01-13 03:00] VITALS: BP 122/66
[2021-01-13 07:00] VITALS: BP 136/68
[2021-01-13] MEDS: METHADONE 5 MG TABLET. PO SCH ×2 (08:14→20:52)
[2021-01-13] MEDS: PANTOPRAZOLE IV PUSH 40 MG VIAL. IVP SCH ×2 (08:14→17:15)
--- NOTE | 2021-01-13 08:37 | PDOC ---
Provider Note Date of Service: DATE: 01/13/21 TIME: 08:36 Provider Note still some nausea and vague pain, b9 exam, labs- sb series /egd ok- will get surg conslt re ? gb source Justifications for Admission Other Justification ARIA ONTIVEROS MD Jan 13, 2021 08:37
--- NOTE | 2021-01-13 09:44 | PDOC2 ---
AGUSTIN DOTSON TECHNICAL SERVICES SPECIALIST 01/13/21 0944: CONSULT Date of Consult Date of Consult DATE: 01/13/21 TIME: 09:38 Reason for Consult Reason for Consult: abd pain Referring Physician Referring Physician: Dr Sutton Identification/Chief Complaint Chief Complaint abdominal pain Source Source: Chart review, Patient History of Present Illness Reason for Visit: upper abdominal pain, vomiting, diarrhea since at least sunday but maybe longer Diarrhea has resolved, vomiting has resolved, continues to have abdominal pain can not relate any aggravating or alleviating factors did have some cream of wheat--did not worse pain, no increased pain Past Medical History Cardiovascular: HTN Pulmonary: Asthma Psych: Anxiety, Depression Endocrine: Hypothyroidism Past Surgical History Past Surgical History: Hysterectomy Family History Family History: High Cholestrol Social History No ALCOHOL: none Drugs: None Current Problem List Problem List Problems Medical Problems: (1) Abdominal pain Status: Acute (2) Headache Status: Acute (3) Intractable nausea and vomiting Status: Acute (4) Nausea & vomiting Status: Acute Current Medications Current Medications Current Medications Sodium Chloride 1,000 ml @ 2,100 mls/hr Q29M IV Last administered on 01/09/21at 02:49; Start 01/08/21 at 21:15; Stop 01/08/21 at 22:15; Status DC Fentanyl Citrate (Fentanyl 2ml Vial) 25 mcg PRN Q15MIN PRN IV PAIN GREATER THAN 3/10 Last administered on 01/09/21at 02:54; Start 01/08/21 at 21:15; Stop 01/09/21 at 09:06; Status DC Ondansetron HCl (Zofran) 4 mg 1X ONCE IVP Last administered on 01/08/21at 21:23; Start 01/08/21 at 21:15; Stop 01/09/21 at 09:06; Status DC Methylprednisolone Sodium Succinate (SOLU-Medrol 125MG VIAL) 125 mg 1X ONCE IV Last administered on 01/08/21at 21:24; Start 01/08/21 at 21:15; Stop 01/09/21 at 09:06; Status DC Ondansetron HCl (Zofran) 4 mg 1X ONCE IVP Last administered on 01/08/21at 23:49; Start 01/08/21 at 23:45; Stop 01/09/21 at 09:06; Status DC Iohexol (Omnipaque 300 Mg/ml) 75 ml 1X ONCE IV Last administered on 01/09/21at 00:22; Start 01/09/21 at 00:00; Stop 01/09/21 at 00:03; Status DC Info (CONTRAST GIVEN -- Rx MONITORING) 1 each PRN DAILY PRN MC SEE COMMENTS; Start 01/09/21 at 00:15; Stop 01/11/21 at 00:14; Status DC Metoclopramide HCl (Reglan Vial) 10 mg 1X ONCE IVP Last administered on 01/09/21at 02:56; Start 01/09/21 at 02:15; Stop 01/09/21 at 09:06; Status DC Famotidine (Pepcid Vial) 20 mg 1X ONCE IVP Last administered on 01/09/21at 02:56; Start 01/09/21 at 02:15; Stop 01/09/21 at 09:06; Status DC Sodium Chloride 1,000 ml @ 100 mls/hr 1X ONCE IV Last administered on 01/09/21at 02:56; Start 01/09/21 at 02:15; Stop 01/09/21 at 12:14; Status DC Ceftriaxone Sodium (Rocephin) 1 gm 1X ONCE IVP Last administered on 01/09/21at 02:49; Start 01/09/21 at 02:15; Stop 01/09/21 at 09:06; Status DC Azithromycin 250 ml @ 250 mls/hr 1X ONCE IV Last administered on 01/09/21at 02:55; Start 01/09/21 at 02:15; Stop 01/09/21 at 09:06; Status DC Lorazepam (Ativan Inj) 1 mg PRN Q3HRS PRN IVP ANXIETY / AGITATION Last administered on 01/12/21at 23:27; Start 01/09/21 at 04:15 Montelukast Sodium (Singulair) 10 mg DAILY PO ; Start 01/09/21 at 09:00; Stop 01/09/21 at 09:06; Status DC Diphenhydramine HCl (Benadryl) 25 mg PRN BID PRN PO ALLERGIES; Start 01/09/21 at 08:30; Stop 01/09/21 at 09:06; Status DC Potassium Chloride/Dextrose/ Sod Cl 1,000 ml @ 60 mls/hr [id number] IV Last administered on 01/12/21at 21:28; Start 01/09/21 at 09:00 Levothyroxine Sodium 50 mcg/ Sodium Chloride 5 ml @ 100 mls/hr Q72H IVP ; Start 01/15/21 at 09:00 Morphine Sulfate (Morphine Sulfate) 2 mg PRN Q4HRS PRN IV PAIN; Start 01/09/21 at 09:00; Stop 01/09/21 at 09:26; Status DC Pantoprazole Sodium (PROTONIX VIAL for IV PUSH) 40 mg DAILYAC IVP Last administered on 01/11/21at 08:24; Start 01/09/21 at 10:30; Stop 01/11/21 at 16:59; Status DC Citalopram Hydrobromide (CeleXA) 20 mg DAILY PO ; Start 01/09/21 at 12:00; Stop 01/09/21 at 09:31; Status DC Morphine Sulfate (Morphine Sulfate) 4 mg PRN Q6HRS PRN IVP PAIN Last administered on 01/09/21at 11:47; Start 01/09/21 at 11:45; Stop 01/10/21 at 03:32; Status DC Ondansetron HCl (Zofran) 4 mg PRN Q6HRS PRN IVP NAUSEA/VOMITING Last administered on 01/12/21at 15:16; Start 01/09/21 at 12:30 Al Hydroxide/Mg Hydroxide (Mylanta Plus Xs) 30 ml PRN Q2HR PRN PO HEARTBURN / GAS Last administered on 01/09/21at 23:28; Start 01/09/21 at 23:15 Methadone HCl (Dolophine) 5 mg BID PO Last administered on 01/13/21at 08:14; Start 01/10/21 at 01:00 Sincalide 1.39 mcg/Sodium Chloride 30 ml @ 120 mls/hr 1X ONCE IV Last administered on 01/10/21at 16:18; Start 01/10/21 at 15:30; Stop 01/10/21 at 15:44; Status DC Hydromorphone HCl (Dilaudid) 0.4 mg PRN Q4HRS PRN IVP PAIN; Start 01/10/21 at 17:30 Ketorolac Tromethamine (Toradol 15mg Vial) 15 mg PRN Q6HRS PRN IVP INFLAMMATION Last administered on 01/12/21at 09:08; Start 01/11/21 at 08:30; Stop 01/16/21 at 08:29 Barium Sulfate (Liquid E-Z Paque) 710 ml 1X ONCE PO Last administered on 01/11/21at 09:25; Start 01/11/21 at 08:45; Stop 01/11/21 at 08:46; Status DC Pantoprazole Sodium (PROTONIX VIAL for IV PUSH) 40 mg BIDAC IVP Last administered on 01/13/21at 08:14; Start 01/11/21 at 17:00 Ringer's Solution 1,000 ml @ 75 mls/hr 1X ONCE IV Last administered on 01/12/21at 12:28; Start 01/12/21 at 12:30; Stop 01/13/21 at 01:49; Status DC Propofol (Diprivan) 200 mg STK-MED ONCE IV ; Start 01/12/21 at 13:09; Stop 01/12/21 at 13:09; Status DC Lidocaine HCl (Lidocaine Pf 2% Vial) 5 ml STK-MED ONCE .ROUTE ; Start 01/12/21 at 13:09; Stop 01/12/21 at 13:09; Status DC Active Scripts Active Doxycycline Hyclate 100 Mg Capsule 1 Cap PO BID Culturelle (Lactobacillus Rhamnosus Gg) 1 Each Cap.sprink 1 Cap PO BID 30 Days Reported Bupropion Xl (Bupropion Hcl) 150 Mg Tab.er.24h 1 Tab PO DAILYWBKFT Afrin (Oxymetazoline Hcl) 30 Ml [place] 3 [place] NS PRN Q6HRS PRN Acetaminophen 500 Mg Tablet 500 Mg PO PRN Q6HRS PRN Melatonin 5 Mg Tab.rapdis 5 Mg PO HS Meclizine Hcl 25 Mg Tablet 25 Mg PO BID Vitamin D3 (Cholecalciferol (Vitamin D3)) 4,000 Unit Capsule 5,000 Unit PO DAILY [b12 shot] 1 Ml IM MONTHLY Crestor (Rosuvastatin Calcium) 40 Mg Tablet 20 Mg PO HS Oxybutynin Chloride 5 Mg Tablet 15 Mg PO BID Nitrofurantoin (Nitrofurantoin Macrocrystal) 100 Mg Capsule 100 Mg PO HS Singulair Tablet (Montelukast Sodium) 10 Mg Tablet 10 Mg PO HS Methadone Hcl 5 Mg Tablet 5 Mg PO BID Metformin Hcl 500 Mg Tablet 500 Mg PO BIDWMEALS Lovaza ([place]-3 Acid Ethyl Esters) 1 Gm Capsule 2 Gm PO BID Claritin (Loratadine) 10 Mg Capsule 10 Mg PO DAILY Citalopram Hbr (Citalopram Hydrobromide) 40 Mg Tablet 40 Mg PO DAILY Alprazolam 0.5 Mg Tablet 0.5 Mg PO PRN DAILY PRN Synthroid (Levothyroxine Sodium) 75 Mcg Tablet 1 Tab PO DAILY Diclofenac Sodium 75 Mg Tablet.dr 75 Mg PO DAILY Omeprazole 40 Mg Capsule.dr 40 Mg PO DAILY Allergies Allergies: Coded Allergies: No Known Drug Allergies (Unverified , 11/11/13) ROS General: YES: Fatigue; No: Chills PSYCHOLOGICAL ROS: No: Anxiety, Depression Eyes: No Blurry vision, No Double vision HEENT: No: Heacaches, Sore Throat Hematological and Lymphatic: No: Bleeding Problems, Blood Clots Respiratory: No: Cough, Shortness of breath Cardiovascular: No Chest Pain, No Palpitations Gastrointestinal: Yes Other (see hpi) Genitourinary: No Dysuria, No Hematuria Musculoskeletal: No Joint Pain, No Muscular Weakness Neurological: No Impaired Coord/balance, No Numbness/Tingling Skin: No Pruritus, No Rash Physical Exam General: Alert, Other (flat affect) HEENT: Atraumatic, PERRLA Lungs: Clear to auscultation, Normal air movement Heart: Regular rate, Normal S1, Normal S2 Abdomen: Soft, Other (ND, appears nontender this AM) Extremities: No clubbing, No cyanosis Skin: No rashes, No breakdown Neuro: Normal speech, Sensation intact Psych/Mental Status: Mental status NL, Mood NL MUSCULOSKELETAL: No deformity, No swelling Vitals VITALS Vital Signs Date Time Temp Pulse Resp B/P (MAP) Pulse Ox O2 Delivery O2 Flow Rate FiO2 01/13/21 08:14 Room Air 01/13/21 07:00 97.4 73 17 136/68 (90) 92 2.0 97.4 Assessment/Plan Assessment/Plan abd pain n/v, diarrhea-resolved imaging reviewed, no definitive findings GB EF 35% will review with HIMA Laguerre MD 01/13/21 1108: CONSULT Assessment/Plan Assessment/Plan Patient seen and evaluated by me she is sitting up in a chair somewhat uncomfortable describes abdominal pain in the epigastrium to right upper quadrant with nausea no vomiting today. HIDA scan shows no signs of acute cholecystitis but low ejection fraction consistent with biliary dyskinesia. Normal ultrasound normal CT scan as far as biliary system. Discussed results of her exams recommendation for cholecystectomy for biliary dyskinesia did discuss that this may not relieve all of her symptoms. She seems to understand and wishes to proceed with cholecystectomy. Agree with Gatica assessment plan AGUSTIN DOTSON APRN Jan 13, 2021 09:44 HIMA SANTIAGO MD Jan 13, 2021 11:08
--- NOTE | 2021-01-13 09:50 | PDOC ---
Date of Service: DATE: 01/13/21 TIME: 09:47 Subjective: Subjective: "Not gagging" today. Ate cream of what. Upper abd discomfort. Objective: Vital Signs: Vital Signs Date Time Temp Pulse Resp B/P (MAP) Pulse Ox O2 Delivery O2 Flow Rate FiO2 01/13/21 08:14 Room Air 01/13/21 07:00 97.4 73 17 136/68 (90) 92 2.0 97.4 Labs: BLOOD CULTURE Preliminary NO GROWTH AFTER 4 DAYS Imaging: EGD 01/12 E- normal G- antral gastritis mild (bx) D- normal (bx) No source for n/v seen. Since SBS normal , so far, only clue is low GB EF%- may consider surgery consult if symptoms continue PE: GEN: NAD LUNGS: CTAB HEART: RRR ABD: soft, doesn't seem too tender - maybe some vague epigastric discomfort NEURO/PSYCH: A & O 3, flat A/P: N/v, upper abd pain GERD, borderline GB EF -- Tolerated some food this morning. Continue acid-sewer hand, support GI-dorado. Surgery following. Justicifation of Admission Dx: Justifications for Admission: Justification of Admission Dx: Yes LENNY ORDONEZ Jan 13, 2021 09:50 CATIE VILLEDA MD Jan 13, 2021 13:02
[2021-01-13 11:00] VITALS: BP 127/72
[2021-01-13 15:00] VITALS: BP 140/98
[2021-01-13] MEDS: POTASSIUM CL 20MEQ D5-0.45NACL 1,000 ML IV SCH (15:25)
--- NOTE | 2021-01-13 19:08 | PATHOLOGY ---
[facility] Accession Number: [id number] . 01 Material submitted: . PART A: duodenum - DUODENUM BIOPSY RULE OUT SPRUE PART B: stomach - ANTRUM BIOPSY RULE OUT H PYLORI GASTRITIS. Modifiers: ANTRUM . 01 Clinical history: . NAUSEA/VOMITING EGD INTRACTABLE NAUSEA AND VOMI... . 02 Diagnosis: A. Duodenal biopsy: - No significant pathologic abnormalities. . B. Gastric biopsies, antrum: - Chronic gastritis, mild. . (JPM:yessenia; 01/13/2021) MBR 01/13/2021 1440 Local . 02 Comment: Sections of the duodenal biopsy reveal segments of duodenal mucosa. Where best oriented, the mucosal villi show no sprue-like changes or significant inflammatory changes. . Sections of the gastric antral biopsy show congestion and mild chronic inflammation. A properly controlled immunoperoxidase stain for Helicobacter is negative for Helicobacter organisms. . (JPM:yessenia; 01/13/2021) . . Special stain performed: Immunoperoxidase stain for Helicobacter . 02 Electronically signed: . Singh Pierce MD, Pathologist NPI- [id number] . 01 Gross description: . A. Received in formalin labeled "Latah, Mariam and duodenum rule out sprue". Received are multiple hannon-brown soft tissue fragments ranging from 0.2-0.3 cm. The specimen is entirely submitted in cassette A1. . B. Received in formalin labeled "Latah, Mariam and antrum gastritis rule out H pylori". Received is a hannon-brown soft tissue fragment measuring 0.5 x 0.3 x 0.2 cm. The specimen is entirely submitted in cassette B1.(BLJ; 01/12/2021 BLJ/BLJ 01/12/2021 2155 Local . 02 Pathologist provided ICD-10: K29.50, R11.2 . 02 CPT . 719980, [id number], Q64189 Specimen Comment: A courtesy copy of this report has been sent to [phone], [phone] Specimen Comment: [phone], [phone] Specimen Comment: Report sent to ,DR ONTIVEROS / DR DELGADO Performed at: 01 [facility] [address] [place] [address] [address], [place] [id number] MD Joe Long MD Phone: [phone] Performed at: 02 [facility] [address] [place], [place] [id number] MD Singh Pierce MD Phone: [phone]
[2021-01-13 19:49] VITALS: BP 120/66
[2021-01-13 23:04] VITALS: BP 129/76
[2021-01-14 03:22] VITALS: BP 130/69
[2021-01-14] MEDS ORDERED: fentaNYL PF VIAL 100 MCG/2 ML VIAL IVP PRN (06:00)
[2021-01-14] MEDS: LEVOTHYROXINE 75 MCG TABLET PO SCH (06:00)
[2021-01-14] MEDS ORDERED: IV RINGERS,LACTATED 1000ML 1,000 ML IV SCH (06:00)
[2021-01-14] MEDS ORDERED: HYDROmorphone 2 MG/ML VIAL IVP PRN (06:00)
[2021-01-14] MEDS ORDERED: fentaNYL PF VIAL 100 MCG/2 ML VIAL ONE ×2 (06:47→08:46)
[2021-01-14] MEDS ORDERED: LIDOCAINE 2% PF 5 ML VIAL. ONE (06:47)
[2021-01-14] MEDS ORDERED: ROCURONIUM 50 MG/5 ML VIAL. ONE (06:47)
[2021-01-14] MEDS ORDERED: PROPOFOL 10 MG/ML (20ML) VIAL. IV ONE (06:47)
[2021-01-14 07:00] VITALS: BP 127/76
[2021-01-14] MEDS ORDERED: BUPIVACAINE-EPI 0.25% 30 ML VIAL KIT. ONE (07:02)
[2021-01-14] MEDS ORDERED: SURGICEL HEMOSTAT 4X8 EACH. ONE (07:02)
[2021-01-14] MEDS ORDERED: IOHEXOL 300 MG/ML 50 ML VIAL. ONE (07:02)
[2021-01-14] MEDS: POTASSIUM CL 20MEQ D5-0.45NACL 1,000 ML IV SCH ×2 (07:21→19:53)
[2021-01-14] MEDS: PANTOPRAZOLE IV PUSH 40 MG VIAL. IVP SCH ×2 (07:30→16:46)
[2021-01-14] MEDS ORDERED: ONDANSETRON PF 4 MG/2 ML VIAL. ONE (07:58)
[2021-01-14] MEDS ORDERED: DEXAMETHASONE SOD PHOS 4 MG/ML VIAL ONE (07:58)
[2021-01-14] MEDS ORDERED: GLYCOPYRROLATE 1 MG/5 ML VIAL. ONE (08:02)
[2021-01-14] MEDS ORDERED: NEOSTIGMINE METHYLSULFATE 5 MG/5 ML SYRINGE. ONE (08:02)
[2021-01-14] MEDS: METHADONE 5 MG TABLET. PO SCH ×2 (08:05→19:57)
[2021-01-14] MEDS ORDERED: PHENYLEPHRINE in 0.9% NACL PF 1 MG/10 ML SYRINGE. IV ONE (08:21)
[2021-01-14] MEDS ORDERED: SEVOFLURANE 61 TO 120 MINUTES. IH ONE (08:21)
--- NOTE | 2021-01-14 08:21 | PDOC ---
Provider Note Date of Service: DATE: 01/14/21 TIME: 08:21 Provider Note in surg today re gb as source of persistant sxs Justifications for Admission Other Justification ARIA ONTIVEROS MD Jan 14, 2021 08:21
--- NOTE | 2021-01-14 08:27 | PDOC4 ---
Operative Note Operative Note Date: January 14, 2021 at 825 Preoperative diagnosis: Biliary dyskinesia Postoperative diagnosis: Same Procedure: Laparoscopic cholecystectomy Surgeon: Hiram Specimen: Gallbladder Dictation: Patient is a 75-year-old female was mated to the hospital with right upper quadrant abdominal pain nausea vomiting abnormal HIDA scan showing ejection fraction of less than 35%. Procedure of laparoscopic cholecystectomy was explained to the patient detail risk benefits were also discussed including bleeding infection injury to intra-abdominal contents possible necessitating further open operations alternatives to this procedure also discussed with patient who seemed to understand and gave a verbal written consent to have the procedure performed. Patient was taken to the operating room placed in the supine position general anesthesia was initiated once patient was sleeping intubated her abdomen was prepped and draped usual sterile fashion using ChloraPrep. Area just below the umbilicus was injected with quarter percent Marcaine with epinephrine incision was made 11 blade scalpel a varies needle was placed within the abdomen creating pneumoperitoneum once this was complete the millimeter port was placed and a 5 mm camera is placed within the abdomen which was inspected no other abnormalities were noted. A 5 mm port was placed in the right upper quadrant 5 mm port was placed in the right lateral quadrant and a 5 mm port was placed in the epigastric area. The dome of the gallbladder is grasped retracted cephalad the infundibulum of the gallbladder was grasped retracted laterally exposing the triangle adherent tissues the triangle were taken down with blunt dissection exposing the cystic duct and cystic artery both were doubly clipped and transected the gallbladder was taken off the liver with hook electrocautery placed in the Endo Catch bag removed and the umbilicus right upper quadrant was irrigated and suctioned dry hemostasis deemed appropriate and the pneumoperitoneum was reduced all ports were removed the fascial defect at the umbilicus was closed with a [id number] 0 Vicryl suture and the skin was reapproximated all port sites for subcuticular Monocryl Mastisol Steri-Strips and island dressings were applied. Patient was awakened and extubated in the operating room taken to recovery in stable condition all sponge instrument needle counts listed as correct estimated blood loss 10 mL HIMA SANTIAGO MD Jan 14, 2021 08:27
[2021-01-14] MEDS ORDERED: PROCHLORPERAZINE 10 MG/2 ML VIAL. ONE (08:37)
[2021-01-14] MEDS: PROCHLORPERAZINE 10 MG/2 ML VIAL. IVP PRN ×2 (08:48→09:05)
[2021-01-14] MEDS: fentaNYL PF VIAL 100 MCG/2 ML VIAL IVP PRN ×2 (08:49→09:06)
[2021-01-14] MEDS ORDERED: MORPHINE SULFATE 2 MG/ML VIAL. ONE (09:25)
[2021-01-14] MEDS: ONDANSETRON PF 4 MG/2 ML VIAL. IVP PRN (09:31)
[2021-01-14] MEDS: MORPHINE SULFATE 2 MG/ML VIAL. IVP PRN ×2 (09:32→09:44)
[2021-01-14] MEDS: KETOROLAC 15 MG/ML VIAL. IVP PRN (10:37)
[2021-01-14 11:00] VITALS: BP 137/64
--- NOTE | 2021-01-14 11:12 | PDOC ---
Date of Service: DATE: 01/14/21 TIME: 11:09 Subjective: Subjective: Feels okay. Objective: Vital Signs: Vital Signs Date Time Temp Pulse Resp B/P (MAP) Pulse Ox O2 Delivery O2 Flow Rate FiO2 01/14/21 10:00 99.4 89 24 128/54 93 Nasal Cannula 2.0 99.4 Labs: Diagnosis: A. Duodenal biopsy: - No significant pathologic abnormalities. B. Gastric biopsies, antrum: - Chronic gastritis, mild. Comment: Sections of the duodenal biopsy reveal segments of duodenal mucosa. Where best oriented, the mucosal villi show no sprue-like changes or significant inflammatory changes. Sections of the gastric antral biopsy show congestion and mild chronic inflammation. A properly controlled immunoperoxidase stain for Helicobacter is negative for Helicobacter organisms. PE: GEN: NAD - family present LUNGS: CTAB, NC 2L HEART: RRR ABD: soft, ice pack RUQ NEURO/PSYCH: drowsy A/P: N/v, abd pain S/p cholecystectomy GERD -- Just back from OR, continue per surgery. EGD biopsies as above - benign. Continue PPI. Discussed hospital course w/ daughter at bedside. Justicifation of Admission Dx: Justifications for Admission: Justification of Admission Dx: Yes LENNY ORDONEZ Jan 14, 2021 11:12
--- NOTE | 2021-01-14 12:43 | NUR ---
SW following. Discussed with RN, pt from home with daughter, uses o2 at home. Pt having a lap madison today. Updates sent to [facility] in case of discharge over the weekend. SW will continue to follow.
[2021-01-14 15:00] VITALS: BP 114/63
[2021-01-14 19:45] VITALS: BP 114/76
[2021-01-14 23:21] VITALS: BP 138/72
[2021-01-14] MEDS: HYDROmorphone 2 MG/ML VIAL IVP PRN (23:47)
[2021-01-15] MEDS: KETOROLAC 15 MG/ML VIAL. IVP PRN ×2 (02:05→08:41)
[2021-01-15 03:10] VITALS: BP 141/61
[2021-01-15] MEDS: HYDROmorphone 2 MG/ML VIAL IVP PRN (05:15)
[2021-01-15] MEDS: LEVOTHYROXINE 75 MCG TABLET PO SCH (05:15)
[2021-01-15 07:00] VITALS: BP 133/73
[2021-01-15] MEDS: METHADONE 5 MG TABLET. PO SCH ×2 (08:40→20:33)
[2021-01-15] MEDS: PANTOPRAZOLE IV PUSH 40 MG VIAL. IVP SCH ×2 (08:41→16:52)
[2021-01-15] MEDS ORDERED: LEVOTHYROXINE SODIUM INJ 50 MCG in NORMAL SALINE 5 ML IVP SCH (09:00)
[2021-01-15 11:00] VITALS: BP 126/69
--- NOTE | 2021-01-15 12:02 | PN ---
DATE: 01/15/2021 LOCATION: She is in room 656. SUBJECTIVE: This 75-year-old white female remains hospitalized with pernicious nausea and vomiting, is status post cholecystectomy in the last 24 hours and feels like this is definitely improved. She does complain of not being able to sleep well last night and expected postoperative abdominal pain. OBJECTIVE: VITAL SIGNS: Stable. She is afebrile. GENERAL: She is awake and alert. CHEST: Clear. HEART: Regular. ABDOMEN: Soft. IMPRESSION: Currently, she has nausea and vomiting, hopefully, due to gallbladder source with cholecystectomy yesterday. Mild chronic gastritis on EGD biopsy, gastroesophageal reflux disease. PLAN: Mobilize as the day goes on and we will see if she does well, possibly be discharged by tomorrow or so. We expect Therapy to continue to work with her today and through the weekend. VENKATA DR: Alex TID: [id number]
--- NOTE | 2021-01-15 13:22 | PDOC ---
PROGRESS NOTES Date of Service DATE: 01/15/21 TIME: : Subjective Subjective doing "ok" Objective Objective Vital Signs Date Time Temp Pulse Resp B/P (MAP) Pulse Ox O2 Delivery O2 Flow Rate FiO2 01/15/21 11:00 98.0 68 20 126/69 (88) 97 Nasal Cannula 2.0 98.0 Intake and Output 01/15/21 07:00 Intake Total 1480 ml Output Total 660 ml Balance 820 ml Intake Oral 830 ml IV Total 650 ml Output Urine Total 650 ml Estimated Blood Loss 10 ml # Voids 3 Physical Exam Abdomen: Soft Assessment Assessment Problems Medical Problems: (1) Abdominal pain Status: Acute (2) Headache Status: Acute (3) Intractable nausea and vomiting Status: Acute (4) Nausea & vomiting Status: Acute Plan Plan of Care POD 1 lap madison, ok to discharge when desired by primary service Comment Review of Relevant I have reviewed the following items main (where applicable) has been applied. Labs Microbiology 01/09/21 Blood Culture - Final, Complete NO GROWTH AFTER 5 DAYS Medications Current Medications Sodium Chloride 1,000 ml @ 2,100 mls/hr Q29M IV Last administered on 01/09/21at 02:49; Start 01/08/21 at 21:15; Stop 01/08/21 at 22:15; Status DC Fentanyl Citrate (Fentanyl 2ml Vial) 25 mcg PRN Q15MIN PRN IV PAIN GREATER THAN 3/10 Last administered on 01/09/21at 02:54; Start 01/08/21 at 21:15; Stop 01/09/21 at 09:06; Status DC Ondansetron HCl (Zofran) 4 mg 1X ONCE IVP Last administered on 01/08/21at 21:23; Start 01/08/21 at 21:15; Stop 01/09/21 at 09:06; Status DC Methylprednisolone Sodium Succinate (SOLU-Medrol 125MG VIAL) 125 mg 1X ONCE IV Last administered on 01/08/21at 21:24; Start 01/08/21 at 21:15; Stop 01/09/21 at 09:06; Status DC Ondansetron HCl (Zofran) 4 mg 1X ONCE IVP Last administered on 01/08/21at 23:49; Start 01/08/21 at 23:45; Stop 01/09/21 at 09:06; Status DC Iohexol (Omnipaque 300 Mg/ml) 75 ml 1X ONCE IV Last administered on 01/09/21at 00:22; Start 01/09/21 at 00:00; Stop 01/09/21 at 00:03; Status DC Info (CONTRAST GIVEN -- Rx MONITORING) 1 each PRN DAILY PRN MC SEE COMMENTS; Start 01/09/21 at 00:15; Stop 01/11/21 at 00:14; Status DC Metoclopramide HCl (Reglan Vial) 10 mg 1X ONCE IVP Last administered on 01/09/21at 02:56; Start 01/09/21 at 02:15; Stop 01/09/21 at 09:06; Status DC Famotidine (Pepcid Vial) 20 mg 1X ONCE IVP Last administered on 01/09/21at 02:56; Start 01/09/21 at 02:15; Stop 01/09/21 at 09:06; Status DC Sodium Chloride 1,000 ml @ 100 mls/hr 1X ONCE IV Last administered on 01/09/21at 02:56; Start 01/09/21 at 02:15; Stop 01/09/21 at 12:14; Status DC Ceftriaxone Sodium (Rocephin) 1 gm 1X ONCE IVP Last administered on 01/09/21at 02:49; Start 01/09/21 at 02:15; Stop 01/09/21 at 09:06; Status DC Azithromycin 250 ml @ 250 mls/hr 1X ONCE IV Last administered on 01/09/21at 02:55; Start 01/09/21 at 02:15; Stop 01/09/21 at 09:06; Status DC Lorazepam (Ativan Inj) 1 mg PRN Q3HRS PRN IVP ANXIETY / AGITATION Last administered on 01/15/21at 05:46; Start 01/09/21 at 04:15 Montelukast Sodium (Singulair) 10 mg DAILY PO ; Start 01/09/21 at 09:00; Stop 01/09/21 at 09:06; Status DC Diphenhydramine HCl (Benadryl) 25 mg PRN BID PRN PO ALLERGIES; Start 01/09/21 at 08:30; Stop 01/09/21 at 09:06; Status DC Potassium Chloride/Dextrose/ Sod Cl 1,000 ml @ 60 mls/hr [id number] IV Last administered on 01/14/21at 19:53; Start 01/09/21 at 09:00 Levothyroxine Sodium 50 mcg/ Sodium Chloride 5 ml @ 100 mls/hr Q72H IVP ; Start 01/15/21 at 09:00; Stop 01/13/21 at 14:07; Status DC Morphine Sulfate (Morphine Sulfate) 2 mg PRN Q4HRS PRN IV PAIN; Start 01/09/21 at 09:00; Stop 01/09/21 at 09:26; Status DC Pantoprazole Sodium (PROTONIX VIAL for IV PUSH) 40 mg DAILYAC IVP Last adm inistered on 01/11/21at 08:24; Start 01/09/21 at 10:30; Stop 01/11/21 at 16:59; Status DC Citalopram Hydrobromide (CeleXA) 20 mg DAILY PO ; Start 01/09/21 at 12:00; Stop 01/09/21 at 09:31; Status DC Morphine Sulfate (Morphine Sulfate) 4 mg PRN Q6HRS PRN IVP PAIN Last administered on 01/09/21at 11:47; Start 01/09/21 at 11:45; Stop 01/10/21 at 03:32; Status DC Ondansetron HCl (Zofran) 4 mg PRN Q6HRS PRN IVP NAUSEA/VOMITING Last administered on 01/14/21at 09:31; Start 01/09/21 at 12:30 Al Hydroxide/Mg Hydroxide (Mylanta Plus Xs) 30 ml PRN Q2HR PRN PO HEARTBURN / GAS Last administered on 01/09/21at 23:28; Start 01/09/21 at 23:15 Methadone HCl (Dolophine) 5 mg BID PO Last administered on 01/15/21at 08:40; Start 01/10/21 at 01:00 Sincalide 1.39 mcg/Sodium Chloride 30 ml @ 120 mls/hr 1X ONCE IV Last administered on 01/10/21at 16:18; Start 01/10/21 at 15:30; Stop 01/10/21 at 15:44; Status DC Hydromorphone HCl (Dilaudid) 0.4 mg PRN Q4HRS PRN IVP PAIN Last administered on 01/15/21at 05:15; Start 01/10/21 at 17:30 Ketorolac Tromethamine (Toradol 15mg Vial) 15 mg PRN Q6HRS PRN IVP INFLAMMATION Last administered on 01/15/21at 08:41; Start 01/11/21 at 08:30; Stop 01/16/21 at 08:29 Barium Sulfate (Liquid E-Z Paque) 710 ml 1X ONCE PO Last administered on 01/11/21at 09:25; Start 01/11/21 at 08:45; Stop 01/11/21 at 08:46; Status DC Pantoprazole Sodium (PROTONIX VIAL for IV PUSH) 40 mg BIDAC IVP Last administered on 01/15/21at 08:41; Start 01/11/21 at 17:00 Ringer's Solution 1,000 ml @ 75 mls/hr 1X ONCE IV Last administered on 01/12/21at 12:28; Start 01/12/21 at 12:30; Stop 01/13/21 at 01:49; Status DC Propofol (Diprivan) 200 mg STK-MED ONCE IV ; Start 01/12/21 at 13:09; Stop 01/12/21 at 13:09; Status DC Lidocaine HCl (Lidocaine Pf 2% Vial) 5 ml STK-MED ONCE .ROUTE ; Start 01/12/21 at 13:09; Stop 01/12/21 at 13:09; Status DC Cefazolin Sodium/ Dextrose 50 ml @ 100 mls/hr 1X ONCE IV ; Start 01/13/21 at 11:45; Stop 01/13/21 at 12:14; Status DC Cefazolin Sodium/ Dextrose 50 ml @ 100 mls/hr 1X ONCE IV Last administered on 01/14/21at 07:53; Start 01/14/21 at 06:00; Stop 01/14/21 at 06:29; Status DC Levothyroxine Sodium (Synthroid) 75 mcg DAILY06 PO Last administered on 01/15/21at 05:15; Start 01/14/21 at 06:00 Fentanyl Citrate (Fentanyl 2ml Vial) 25 mcg PRN Q5MIN PRN IVP MILD PAIN 1-3; Start 01/14/21 at 06:00; Stop 01/15/21 at 05:59; Status DC Fentanyl Citrate (Fentanyl 2ml Vial) 50 mcg PRN Q5MIN PRN IVP MODERATE PAIN 4-6 Last administered on 01/14/21at 09:06; Start 01/14/21 at 06:00; Stop 01/15/21 at 05:59; Status DC Morphine Sulfate (Morphine Sulfate) 1 mg PRN Q10MIN PRN IVP SEVERE PAIN 7-10 Last administered on 01/14/21at 09:44; Start 01/14/21 at 06:00; Stop 01/15/21 at 05:59; Status DC Ringer's Solution 1,000 ml @ 30 mls/hr Q24H IV Last administered on 01/14/21at 07:30; Start 01/14/21 at 06:00; Stop 01/14/21 at 17:59; Status DC Hydromorphone HCl (Dilaudid) 0.5 mg PRN Q10MIN PRN IVP SEVERE PAIN 7-10, 2nd CHOICE; Start 01/14/21 at 06:00; Stop 01/15/21 at 05:59; Status DC Prochlorperazine Edisylate (Compazine) 5 mg PACU PRN PRN IVP NAUSEA, MRX1 Last administered on 01/14/21at 09:05; Start 01/14/21 at 06:00; Stop 01/15/21 at 05:59; Status DC Lidocaine HCl (Lidocaine Pf 2% Vial) 5 ml STK-MED ONCE .ROUTE ; Start 01/14/21 at 06:47; Stop 01/14/21 at 06:47; Status DC Propofol (Diprivan) 200 mg STK-MED ONCE IV ; Start 01/14/21 at 06:47; Stop 01/14/21 at 06:47; Status DC Rocuronium [place] (Zemuron) 50 mg STK-MED ONCE .ROUTE ; Start 01/14/21 at 06:47; Stop 01/14/21 at 06:47; Status DC Fentanyl Citrate (Fentanyl 2ml Vial) 100 mcg STK-MED ONCE .ROUTE ; Start 01/14/21 at 06:47; Stop 01/14/21 at 06:47; Status DC Bupivacaine HCl/ Epinephrine Bitart (Sensorcain-Epi 0.25% Kit) 30 ml STK-MED ONCE .ROUTE Last administered on 01/14/21at 07:59; Start 01/14/21 at 07:02; Stop 01/14/21 at 07:02; Status DC Iohexol (Omnipaque 300 Mg/ml) 50 ml STK-MED ONCE .ROUTE ; Start 01/14/21 at 07:02; Stop 01/14/21 at 07:02; Status DC Cellulose (Surgicel Hemostat 4x8) 1 each STK-MED ONCE .ROUTE ; Start 01/14/21 at 07:02; Stop 01/14/21 at 07:02; Status DC Ondansetron HCl (Zofran) 4 mg STK-MED ONCE .ROUTE ; Start 01/14/21 at 07:58; Stop 01/14/21 at 07:58; Status DC Dexamethasone Sodium Phosphate (Decadron) 4 mg STK-MED ONCE .ROUTE ; Start 01/14/21 at 07:58; Stop 01/14/21 at 07:58; Status DC Neostigmine [place] (Neostigmine Methylsulfate) 5 mg STK-MED ONCE .ROUTE ; Start 01/14/21 at 08:02; Stop 01/14/21 at 08:03; Status DC Glycopyrrolate (Robinul) 1 mg STK-MED ONCE .ROUTE ; Start 01/14/21 at 08:02; Stop 01/14/21 at 08:03; Status DC Phenylephrine HCl (PHENYLEPHRINE in 0.9% NACL PF) 1 mg STK-MED ONCE IV ; Start 01/14/21 at 08:21; Stop 01/14/21 at 08:21; Status DC Sevoflurane (Ultane) 60 ml STK-MED ONCE IH ; Start 01/14/21 at 08:21; Stop 01/14/21 at 08:21; Status DC Prochlorperazine Edisylate (Compazine) 10 mg STK-MED ONCE .ROUTE ; Start 01/14/21 at 08:37; Stop 01/14/21 at 08:37; Status DC Fentanyl Citrate (Fentanyl 2ml Vial) 100 mcg STK-MED ONCE .ROUTE ; Start 01/14/21 at 08:46; Stop 01/14/21 at 08:46; Status DC Morphine Sulfate (Morphine Sulfate) 2 mg STK-MED ONCE .ROUTE ; Start 01/14/21 at 09:25; Stop 01/14/21 at 09:25; Status DC Active Scripts Active Doxycycline Hyclate 100 Mg Capsule 1 Cap PO BID Culturelle (Lactobacillus Rhamnosus Gg) 1 Each Cap.sprink 1 Cap PO BID 30 Days Reported Bupropion Xl (Bupropion Hcl) 150 Mg Tab.er.24h 1 Tab PO DAILYWBKFT Afrin (Oxymetazoline Hcl) 30 Ml Industry 3 Industry NS PRN Q6HRS PRN Acetaminophen 500 Mg Tablet 500 Mg PO PRN Q6HRS PRN Melatonin 5 Mg Tab.rapdis 5 Mg PO HS Meclizine Hcl 25 Mg Tablet 25 Mg PO BID Vitamin D3 (Cholecalciferol (Vitamin D3)) 4,000 Unit Capsule 5,000 Unit PO DAILY [b12 shot] 1 Ml IM MONTHLY Crestor (Rosuvastatin Calcium) 40 Mg Tablet 20 Mg PO HS Oxybutynin Chloride 5 Mg Tablet 15 Mg PO BID Nitrofurantoin (Nitrofurantoin Macrocrystal) 100 Mg Capsule 100 Mg PO HS Singulair Tablet (Montelukast Sodium) 10 Mg Tablet 10 Mg PO HS Methadone Hcl 5 Mg Tablet 5 Mg PO BID Metformin Hcl 500 Mg Tablet 500 Mg PO BIDWMEALS Lovaza ([employer]-3 Acid Ethyl Esters) 1 Gm Capsule 2 Gm PO BID Claritin (Loratadine) 10 Mg Capsule 10 Mg PO DAILY Citalopram Hbr (Citalopram Hydrobromide) 40 Mg Tablet 40 Mg PO DAILY Alprazolam 0.5 Mg Tablet 0.5 Mg PO PRN DAILY PRN Synthroid (Levothyroxine Sodium) 75 Mcg Tablet 1 Tab PO DAILY Diclofenac Sodium 75 Mg Tablet.dr 75 Mg PO DAILY Omeprazole 40 Mg Capsule.dr 40 Mg PO DAILY Vitals/I & O Vital Sign - Last 24 Hours 01/14/21 01/14/21 01/14/21 01/14/21 15:00 19:45 19:57 20:00 Temp 98.9 98.9 Pulse 84 77 Resp 18 20 B/P (MAP) 114/63 (80) 114/76 (89) Pulse Ox 98 100 O2 Delivery Nasal Cannula Nasal Cannula Nasal Cannula Nasal Cannula O2 Flow Rate 2.0 2.0 2.0 01/14/21 01/14/21 01/14/21 01/15/21 20:27 23:21 23:47 00:17 Temp 98.1 98.1 Pulse 77 Resp 20 B/P (MAP) 138/72 (94) Pulse Ox 99 O2 Delivery Nasal Cannula Nasal Cannula Nasal Cannula Nasal Cannula O2 Flow Rate 2.0 01/15/21 01/15/21 01/15/21 01/15/21 03:10 05:15 05:45 07:00 Temp 98.3 98.2 98.3 98.2 Pulse 75 60 Resp 20 20 B/P (MAP) 141/61 (87) 133/73 (93) Pulse Ox 100 100 O2 Delivery Nasal Cannula Nasal Cannula Nasal Cannula Nasal Cannula O2 Flow Rate 2.0 2.0 01/15/21 01/15/21 08:40 11:00 Temp 98.0 98.0 Pulse 68 Resp 20 B/P (MAP) 126/69 (88) Pulse Ox 100 97 O2 Delivery Nasal Cannula Nasal Cannula O2 Flow Rate 2.0 2.0 Intake and Output 01/14/21 01/14/21 01/15/21 15:00 23:00 07:00 Intake Total 950 ml 400 ml 130 ml Output Total 10 ml 650 ml Balance 940 ml 400 ml -520 ml Justifications for Admission Other Justification Nutrition Consultation Dietary Evaluation: Recommendations by RD: Dietary education by RD, Increase Calorie Intake, Protein supplementation, PPN/TPN Comments: pt to have surgery tomorrow,hx NPO/CL x 4 days REC PPN for short term nutrition along with diet per GI Expected Outcomes/Goals: to meet >75% est nutr needs via po intake/ nutrition support Malnutrition Findings: Food and Nutrition Intake (Sev: <50% est energy req 5days Body Fat Depletion (Non Severe: Mod to Severe Weight Status: Obese BRAXTON WILKINS MD Jan 15, 2021 13:22
[2021-01-15 15:00] VITALS: BP 118/71
[2021-01-15] MEDS: POTASSIUM CL 20MEQ D5-0.45NACL 1,000 ML IV SCH (16:52)
[2021-01-15 19:00] VITALS: BP 126/65
[2021-01-15 23:29] VITALS: BP 140/40
[2021-01-16 02:53] VITALS: BP 139/70
[2021-01-16] MEDS: KETOROLAC 15 MG/ML VIAL. IVP PRN (05:29)
[2021-01-16] MEDS: LEVOTHYROXINE 75 MCG TABLET PO SCH (05:29)
[2021-01-16 07:00] VITALS: BP 132/59
[2021-01-16] MEDS: PANTOPRAZOLE IV PUSH 40 MG VIAL. IVP SCH (08:26)
[2021-01-16] MEDS: METHADONE 5 MG TABLET. PO SCH ×2 (08:27→20:14)
[2021-01-16] MEDS: POTASSIUM CL 20MEQ D5-0.45NACL 1,000 ML IV SCH (08:28)
--- NOTE | 2021-01-16 09:57 | PDOC ---
PROGRESS NOTES Date of Service DATE: 01/16/21 TIME: 09:57 Subjective Subjective no complaints Objective Objective Vital Signs Date Time Temp Pulse Resp B/P (MAP) Pulse Ox O2 Delivery O2 Flow Rate FiO2 01/16/21 08:27 Nasal Cannula 2.0 01/16/21 07:00 98.7 73 18 132/59 (83) 97 98.7 Intake and Output 01/16/21 07:00 Intake Total 30 ml Output Total 1030 ml Balance -1000 ml Intake Oral 30 ml Output Urine Total 1030 ml # Bowel Movements 2 Physical Exam Abdomen: Soft, No tenderness Assessment Assessment Problems Medical Problems: (1) Abdominal pain Status: Acute (2) Headache Status: Acute (3) Intractable nausea and vomiting Status: Acute (4) Nausea & vomiting Status: Acute Plan Plan of Care OK to discharge from surgery standpoint Comment Review of Relevant I have reviewed the following items main (where applicable) has been applied. Labs Microbiology 01/09/21 Blood Culture - Final, Complete NO GROWTH AFTER 5 DAYS Medications Current Medications Sodium Chloride 1,000 ml @ 2,100 mls/hr Q29M IV Last administered on 01/09/21at 02:49; Start 01/08/21 at 21:15; Stop 01/08/21 at 22:15; Status DC Fentanyl Citrate (Fentanyl 2ml Vial) 25 mcg PRN Q15MIN PRN IV PAIN GREATER THAN 3/10 Last administered on 01/09/21at 02:54; Start 01/08/21 at 21:15; Stop 01/09/21 at 09:06; Status DC Ondansetron HCl (Zofran) 4 mg 1X ONCE IVP Last administered on 01/08/21at 21:23; Start 01/08/21 at 21:15; Stop 01/09/21 at 09:06; Status DC Methylprednisolone Sodium Succinate (SOLU-Medrol 125MG VIAL) 125 mg 1X ONCE IV Last administered on 01/08/21at 21:24; Start 01/08/21 at 21:15; Stop 01/09/21 at 09:06; Status DC Ondansetron HCl (Zofran) 4 mg 1X ONCE IVP Last administered on 01/08/21at 23:49; Start 01/08/21 at 23:45; Stop 01/09/21 at 09:06; Status DC Iohexol (Omnipaque 300 Mg/ml) 75 ml 1X ONCE IV Last administered on 01/09/21at 00:22; Start 01/09/21 at 00:00; Stop 01/09/21 at 00:03; Status DC Info (CONTRAST GIVEN -- Rx MONITORING) 1 each PRN DAILY PRN MC SEE COMMENTS; Start 01/09/21 at 00:15; Stop 01/11/21 at 00:14; Status DC Metoclopramide HCl (Reglan Vial) 10 mg 1X ONCE IVP Last administered on 01/09/21at 02:56; Start 01/09/21 at 02:15; Stop 01/09/21 at 09:06; Status DC Famotidine (Pepcid Vial) 20 mg 1X ONCE IVP Last administered on 01/09/21at 02:56; Start 01/09/21 at 02:15; Stop 01/09/21 at 09:06; Status DC Sodium Chloride 1,000 ml @ 100 mls/hr 1X ONCE IV Last administered on 01/09/21at 02:56; Start 01/09/21 at 02:15; Stop 01/09/21 at 12:14; Status DC Ceftriaxone Sodium (Rocephin) 1 gm 1X ONCE IVP Last administered on 01/09/21at 02:49; Start 01/09/21 at 02:15; Stop 01/09/21 at 09:06; Status DC Azithromycin 250 ml @ 250 mls/hr 1X ONCE IV Last administered on 01/09/21at 02:55; Start 01/09/21 at 02:15; Stop 01/09/21 at 09:06; Status DC Lorazepam (Ativan Inj) 1 mg PRN Q3HRS PRN IVP ANXIETY / AGITATION Last adminis tered on 01/15/21at 05:46; Start 01/09/21 at 04:15 Montelukast Sodium (Singulair) 10 mg DAILY PO ; Start 01/09/21 at 09:00; Stop 01/09/21 at 09:06; Status DC Diphenhydramine HCl (Benadryl) 25 mg PRN BID PRN PO ALLERGIES; Start 01/09/21 at 08:30; Stop 01/09/21 at 09:06; Status DC Potassium Chloride/Dextrose/ Sod Cl 1,000 ml @ 60 mls/hr [id number] IV Last administered on 01/16/21at 08:28; Start 01/09/21 at 09:00 Levothyroxine Sodium 50 mcg/ Sodium Chloride 5 ml @ 100 mls/hr Q72H IVP ; Start 01/15/21 at 09:00; Stop 01/13/21 at 14:07; Status DC Morphine Sulfate (Morphine Sulfate) 2 mg PRN Q4HRS PRN IV PAIN; Start 01/09/21 at 09:00; Stop 01/09/21 at 09:26; Status DC Pantoprazole Sodium (PROTONIX VIAL for IV PUSH) 40 mg DAILYAC IVP Last administered on 01/11/21at 08:24; Start 01/09/21 at 10:30; Stop 01/11/21 at 16:59; Status DC Citalopram Hydrobromide (CeleXA) 20 mg DAILY PO ; Start 01/09/21 at 12:00; Stop 01/09/21 at 09:31; Status DC Morphine Sulfate (Morphine Sulfate) 4 mg PRN Q6HRS PRN IVP PAIN Last admini stered on 01/09/21at 11:47; Start 01/09/21 at 11:45; Stop 01/10/21 at 03:32; Status DC Ondansetron HCl (Zofran) 4 mg PRN Q6HRS PRN IVP NAUSEA/VOMITING Last administered on 01/14/21at 09:31; Start 01/09/21 at 12:30 Al Hydroxide/Mg Hydroxide (Mylanta Plus Xs) 30 ml PRN Q2HR PRN PO HEARTBURN / GAS Last administered on 01/09/21at 23:28; Start 01/09/21 at 23:15 Methadone HCl (Dolophine) 5 mg BID PO Last administered on 01/16/21at 08:27; Start 01/10/21 at 01:00 Sincalide 1.39 mcg/Sodium Chloride 30 ml @ 120 mls/hr 1X ONCE IV Last administered on 01/10/21at 16:18; Start 01/10/21 at 15:30; Stop 01/10/21 at 15:44; Status DC Hydromorphone HCl (Dilaudid) 0.4 mg PRN Q4HRS PRN IVP PAIN Last administered on 01/15/21at 05:15; Start 01/10/21 at 17:30 Ketorolac Tromethamine (Toradol 15mg Vial) 15 mg PRN Q6HRS PRN IVP INFLAMMATION Last administered on 01/16/21at 05:29; Start 01/11/21 at 08:30; Stop 01/16/21 at 08:29; Status DC Barium Sulfate (Liquid E-Z Paque) 710 ml 1X ONCE PO Last administered on 01/11/21at 09:25; Start 01/11/21 at 08:45; Stop 01/11/21 at 08:46; Status DC Pantoprazole Sodium (PROTONIX VIAL for IV PUSH) 40 mg BIDAC IVP Last adm inistered on 01/16/21at 08:26; Start 01/11/21 at 17:00 Ringer's Solution 1,000 ml @ 75 mls/hr 1X ONCE IV Last administered on 01/12/21at 12:28; Start 01/12/21 at 12:30; Stop 01/13/21 at 01:49; Status DC Propofol (Diprivan) 200 mg STK-MED ONCE IV ; Start 01/12/21 at 13:09; Stop 01/12/21 at 13:09; Status DC Lidocaine HCl (Lidocaine Pf 2% Vial) 5 ml STK-MED ONCE .ROUTE ; Start 01/12/21 at 13:09; Stop 01/12/21 at 13:09; Status DC Cefazolin Sodium/ Dextrose 50 ml @ 100 mls/hr 1X ONCE IV ; Start 01/13/21 at 11:45; Stop 01/13/21 at 12:14; Status DC Cefazolin Sodium/ Dextrose 50 ml @ 100 mls/hr 1X ONCE IV Last administered on 01/14/21at 07:53; Start 01/14/21 at 06:00; Stop 01/14/21 at 06:29; Status DC Levothyroxine Sodium (Synthroid) 75 mcg DAILY06 PO Last administered on 01/16/21at 05:29; Start 01/14/21 at 06:00 Fentanyl Citrate (Fentanyl 2ml Vial) 25 mcg PRN Q5MIN PRN IVP MILD PAIN 1-3; Start 01/14/21 at 06:00; Stop 01/15/21 at 05:59; Status DC Fentanyl Citrate (Fentanyl 2ml Vial) 50 mcg PRN Q5MIN PRN IVP MODERATE PAIN 4-6 Last administered on 01/14/21at 09:06; Start 01/14/21 at 06:00; Stop 01/15/21 at 05:59; Status DC Morphine Sulfate (Morphine Sulfate) 1 mg PRN Q10MIN PRN IVP SEVERE PAIN 7-10 Last administered on 01/14/21at 09:44; Start 01/14/21 at 06:00; Stop 01/15/21 at 05:59; Status DC Ringer's Solution 1,000 ml @ 30 mls/hr Q24H IV Last administered on 01/14/21at 07:30; Start 01/14/21 at 06:00; Stop 01/14/21 at 17:59; Status DC Hydromorphone HCl (Dilaudid) 0.5 mg PRN Q10MIN PRN IVP SEVERE PAIN 7-10, 2nd CHOICE; Start 01/14/21 at 06:00; Stop 01/15/21 at 05:59; Status DC Prochlorperazine Edisylate (Compazine) 5 mg PACU PRN PRN IVP NAUSEA, MRX1 Last administered on 01/14/21at 09:05; Start 01/14/21 at 06:00; Stop 01/15/21 at 05:59; Status DC Lidocaine HCl (Lidocaine Pf 2% Vial) 5 ml STK-MED ONCE .ROUTE ; Start 01/14/21 at 06:47; Stop 01/14/21 at 06:47; Status DC Propofol (Diprivan) 200 mg STK-MED ONCE IV ; Start 01/14/21 at 06:47; Stop 01/14/21 at 06:47; Status DC Rocuronium [place] (Zemuron) 50 mg STK-MED ONCE .ROUTE ; Start 01/14/21 at 06:47; Stop 01/14/21 at 06:47; Status DC Fentanyl Citrate (Fentanyl 2ml Vial) 100 mcg STK-MED ONCE .ROUTE ; Start 01/14/21 at 06:47; Stop 01/14/21 at 06:47; Status DC Bupivacaine HCl/ Epinephrine Bitart (Sensorcain-Epi 0.25% Kit) 30 ml STK-MED ONCE .ROUTE Last administered on 01/14/21at 07:59; Start 01/14/21 at 07:02; Stop 01/14/21 at 07:02; Status DC Iohexol (Omnipaque 300 Mg/ml) 50 ml STK-MED ONCE .ROUTE ; Start 01/14/21 at 07:02; Stop 01/14/21 at 07:02; Status DC Cellulose (Surgicel Hemostat 4x8) 1 each STK-MED ONCE .ROUTE ; Start 01/14/21 at 07:02; Stop 01/14/21 at 07:02; Status DC Ondansetron HCl (Zofran) 4 mg STK-MED ONCE .ROUTE ; Start 01/14/21 at 07:58; Stop 01/14/21 at 07:58; Status DC Dexamethasone Sodium Phosphate (Decadron) 4 mg STK-MED ONCE .ROUTE ; Start 01/14/21 at 07:58; Stop 01/14/21 at 07:58; Status DC Neostigmine [place] (Neostigmine Methylsulfate) 5 mg STK-MED ONCE .ROUTE ; Start 01/14/21 at 08:02; Stop 01/14/21 at 08:03; Status DC Glycopyrrolate (Robinul) 1 mg STK-MED ONCE .ROUTE ; Start 01/14/21 at 08:02; Stop 01/14/21 at 08:03; Status DC Phenylephrine HCl (PHENYLEPHRINE in 0.9% NACL PF) 1 mg STK-MED ONCE IV ; Start 01/14/21 at 08:21; Stop 01/14/21 at 08:21; Status DC Sevoflurane (Ultane) 60 ml STK-MED ONCE IH ; Start 01/14/21 at 08:21; Stop 01/14/21 at 08:21; Status DC Prochlorperazine Edisylate (Compazine) 10 mg STK-MED ONCE .ROUTE ; Start 01/14/21 at 08:37; Stop 01/14/21 at 08:37; Status DC Fentanyl Citrate (Fentanyl 2ml Vial) 100 mcg STK-MED ONCE .ROUTE ; Start 01/14/21 at 08:46; Stop 01/14/21 at 08:46; Status DC Morphine Sulfate (Morphine Sulfate) 2 mg STK-MED ONCE .ROUTE ; Start 01/14/21 at 09:25; Stop 01/14/21 at 09:25; Status DC Active Scripts Active Doxycycline Hyclate 100 Mg Capsule 1 Cap PO BID Culturelle (Lactobacillus Rhamnosus Gg) 1 Each Cap.sprink 1 Cap PO BID 30 Days Reported Bupropion Xl (Bupropion Hcl) 150 Mg Tab.er.24h 1 Tab PO DAILYWBKFT Afrin (Oxymetazoline Hcl) 30 Ml [place] 3 [place] NS PRN Q6HRS PRN Acetaminophen 500 Mg Tablet 500 Mg PO PRN Q6HRS PRN Melatonin 5 Mg Tab.rapdis 5 Mg PO HS Meclizine Hcl 25 Mg Tablet 25 Mg PO BID Vitamin D3 (Cholecalciferol (Vitamin D3)) 4,000 Unit Capsule 5,000 Unit PO DAILY [b12 shot] 1 Ml IM MONTHLY Crestor (Rosuvastatin Calcium) 40 Mg Tablet 20 Mg PO HS Oxybutynin Chloride 5 Mg Tablet 15 Mg PO BID Nitrofurantoin (Nitrofurantoin Macrocrystal) 100 Mg Capsule 100 Mg PO HS Singulair Tablet (Montelukast Sodium) 10 Mg Tablet 10 Mg PO HS Methadone Hcl 5 Mg Tablet 5 Mg PO BID Metformin Hcl 500 Mg Tablet 500 Mg PO BIDWMEALS Lovaza (Pep-3 Acid Ethyl Esters) 1 Gm Capsule 2 Gm PO BID Claritin (Loratadine) 10 Mg Capsule 10 Mg PO DAILY Citalopram Hbr (Citalopram Hydrobromide) 40 Mg Tablet 40 Mg PO DAILY Alprazolam 0.5 Mg Tablet 0.5 Mg PO PRN DAILY PRN Synthroid (Levothyroxine Sodium) 75 Mcg Tablet 1 Tab PO DAILY Diclofenac Sodium 75 Mg Tablet.dr 75 Mg PO DAILY Omeprazole 40 Mg Capsule.dr 40 Mg PO DAILY Vitals/I & O Vital Sign - Last 24 Hours 01/15/21 01/15/21 01/15/21 01/15/21 11:00 15:00 19:00 20:20 Temp 98.0 97.9 98.9 98.0 97.9 98.9 Pulse 68 63 82 Resp 20 20 18 B/P (MAP) 126/69 (88) 118/71 (87) 126/65 (85) Pulse Ox 97 98 96 O2 Delivery Nasal Cannula Nasal Cannula Nasal Cannula Nasal Cannula O2 Flow Rate 2.0 2.0 2.0 2.0 01/15/21 01/15/21 01/15/21 01/16/21 20:33 23:29 23:29 02:53 Temp 98.8 99.8 98.4 98.8 99.8 98.4 Pulse 71 66 Resp 18 18 B/P (MAP) 140/40 (73) 139/70 (93) Pulse Ox 97 97 O2 Delivery Room Air Room Air O2 Flow Rate 2.0 01/16/21 01/16/21 07:00 08:27 Temp 98.7 98.7 Pulse 73 Resp 18 B/P (MAP) 132/59 (83) Pulse Ox 97 O2 Delivery Nasal Cannula Nasal Cannula O2 Flow Rate 2.0 2.0 Intake and Output 01/15/21 01/15/21 01/16/21 15:00 23:00 07:00 Intake Total 30 ml Output Total 30 ml 1000 ml Balance 0 ml -1000 ml Justifications for Admission Other Justification Nutrition Consultation Dietary Evaluation: Recommendations by RD: Dietary education by RD, Increase Calorie Intake, Protein supplementation, PPN/TPN Comments: pt to have surgery tomorrow,hx NPO/CL x 4 days REC PPN for short term nutrition along with diet per GI Expected Outcomes/Goals: to meet >75% est nutr needs via po intake/ nutrition support Malnutrition Findings: Food and Nutrition Intake (Sev: <50% est energy req 5days Body Fat Depletion (Non Severe: Mod to Severe Weight Status: Obese BRAXTON WILKINS MD Jan 16, 2021 09:57
[2021-01-16 11:00] VITALS: BP 117/68
[2021-01-16 15:00] VITALS: BP 112/63
[2021-01-16] MEDS: PANTOPRAZOLE 40 MG TABLET.DR. PO SCH (16:14)
[2021-01-16 19:00] VITALS: BP 141/60
--- NOTE | 2021-01-16 20:28 | PN ---
DATE: 01/16/2021 LOCATION: She is in room 656. SUBJECTIVE: This 75-year-old white female remains hospitalized with pernicious nausea and vomiting. This is markedly improved gone after her cholecystectomy. She complains of weakness. Her daughter is working today and she is not sure if she can navigate home without her being there. In addition, she should be off the next couple of days. OBJECTIVE: VITAL SIGNS: Stable. She is afebrile. GENERAL: She is awake and alert. CHEST: Clear. HEART: Regular. ABDOMEN: Benign. IMPRESSION: 1. Status post cholecystectomy with improvement in overall symptomatology. 2. Generalized weakness. PLAN: Continue therapy through the day with plans on discharge tomorrow with daughter's help. TOR DR: Alex TID: [phone]
[2021-01-16 22:24] VITALS: BP 111/53
[2021-01-16] MEDS: MAG HYDROX/ALUMINUM HYD/SIMETH 30 ML ORAL.SUSP PO PRN (22:37)
[2021-01-17] MEDS: POTASSIUM CL 20MEQ D5-0.45NACL 1,000 ML IV SCH (02:56)
[2021-01-17 03:00] VITALS: BP 169/85
[2021-01-17] MEDS: PANTOPRAZOLE 40 MG TABLET.DR. PO SCH (06:28)
[2021-01-17] MEDS: LEVOTHYROXINE 75 MCG TABLET PO SCH (06:28)
[2021-01-17 07:00] VITALS: BP 145/67
--- NOTE | 2021-01-17 07:40 | SNU/HH DC ---
DISCHARGE WITH HOME HEALTH DISCHARGE INFORMATION: Discharge Date: Jan 17, 2021 Final Diagnosis: Problems Medical Problems: (1) Abdominal pain Status: Acute (2) Headache Status: Acute (3) Intractable nausea and vomiting Status: Acute (4) Nausea & vomiting Status: Acute Condition on Discharge: Stable CODE STATUS: Code Status: Full HOME HEALTH: Face to Face: I certify this patient is under my care and that I, or a nurse practitioner or physician's mailing machine assistant working with me, had a face to face encounter that meets the physician face to face encounter requirements with this patient on []. Medical Complications: Other (Biliary dyskinesia) Halfway For: Assess/Skilled Observatio RN For Eval/Treatment: Yes Physical Therapy For: Evalulation/Treatment Occupational Therapy For: Evaluation/Treatment Home Health Aide For: Self-care Pt Meets Homebound Status: Limited distance walking, Poor cognition, Unable to negotiate home POST DISCHARGE ORDERS: Activity Instructions for Disc: Activity as tolerated Weight Bearing Status after Di: No restrictions DIET AFTER DISCHARGE: Regular TREATMENT/EQUIPMENT ORDERS: Adaptive Equipment Issued: None CERTIFICATION STATEMENT: Certification Statement: Certification Statement: Based on the above finding, I certify that this patient is confined to the home and needs intermittent fpc care, physical therapy and/or speech therapy, or continues to need occupational therapy.~ This patient is under my care, and I have initiated the establishment of the plan of care.~ This patient will be followed by myself or a community physician who will periodically review the plan of care. Home Meds Active Scripts Lactobacillus Rhamnosus Gg (CULTURELLE) 1 Each Cap.sprink, 1 CAP PO BID for probiotic for 30 Days, #60 CAP Prov:RYLAN MINOR MD 11/11/19 Reported Medications Bupropion Hcl (BUPROPION XL) 150 Mg Tab.er.24h, 1 TAB PO DAILYWBKFT for depression, #30 TAB 2 Refills 01/09/21 Oxymetazoline Hcl (AFRIN) 30 Ml [place], 3 SPRAY NS PRN Q6HRS PRN for ALLERGIES, SPRAY 11/07/19 Acetaminophen (ACETAMINOPHEN) 500 Mg Tablet, 500 MG PO PRN Q6HRS PRN for MILD PAIN / TEMP, TAB 11/07/19 Melatonin (MELATONIN) 5 Mg Tab.rapdis, 5 MG PO HS for insomnia, TAB 11/07/19 Meclizine Hcl (MECLIZINE HCL) 25 Mg Tablet, 25 MG PO BID for vertigo, TAB 11/07/19 Cholecalciferol (Vitamin D3) (VITAMIN D3) 4,000 Unit Capsule, 5000 UNIT PO DAILY for deficiency, CAP 11/07/19 [b12 shot] No Conflict Check, 1 ML IM monthly 11/07/19 Rosuvastatin Calcium (CRESTOR) 40 Mg Tablet, 20 MG PO HS for FOR CHOLESTEROL, #30 TAB 0 Refills 11/07/19 Oxybutynin Chloride (OXYBUTYNIN CHLORIDE) 5 Mg Tablet, 15 MG PO BID for bladder, TAB 11/07/19 Montelukast Sodium (SINGULAIR TABLET ) 10 Mg Tablet, 10 MG PO HS for FOR ASTHMA, TAB 0 Refills 11/07/19 Methadone Hcl (METHADONE HCL) 5 Mg Tablet, 5 MG PO BID for pain, TAB 11/07/19 Metformin Hcl (METFORMIN HCL) 500 Mg Tablet, 500 MG PO BIDWMEALS for ANTI- DIABETIC, TAB 0 Refills 11/07/19 [place]-3 Acid Ethyl Esters (LOVAZA) 1 Gm Capsule, 2 GM PO BID for hld, CAP 11/07/19 Loratadine (CLARITIN) 10 Mg Capsule, 10 MG PO DAILY for allergies, CAP 11/07/19 Citalopram Hydrobromide (CITALOPRAM HBR) 40 Mg Tablet, 40 MG PO DAILY for depression, TAB 11/07/19 Alprazolam (ALPRAZOLAM) 0.5 Mg Tablet, 0.5 MG PO PRN DAILY PRN for ANXIETY / AGITATION, TAB 0 Refills 11/07/19 Levothyroxine Sodium (SYNTHROID) 75 Mcg Tablet, 1 TAB PO DAILY, #30 TAB 5 Refills 02/02/16 Diclofenac Sodium (DICLOFENAC SODIUM) 75 Mg Tablet.dr, 75 MG PO DAILY for arthritis, #60 TAB 1 Refill 02/02/16 Omeprazole (OMEPRAZOLE) 40 Mg Capsule.dr, 40 MG PO DAILY for gerd 11/11/13 Discontinued Reported Medications Nitrofurantoin Macrocrystal (NITROFURANTOIN) 100 Mg Capsule, 100 MG PO HS for bladder, CAP 11/07/19 Discontinued Scripts Doxycycline Hyclate (DOXYCYCLINE HYCLATE) 100 Mg Capsule, 1 CAP PO BID for pneumonia, #6 CAP Prov:RYLAN MINOR MD 11/11/19 ANA SMITH MD Jan 17, 2021 07:40
--- NOTE | 2021-01-17 07:46 | PDOC3 ---
Discharge Summary Date of Admission: Jan 09, 2021 Date of Discharge: Jan 17, 2021 Follow-Up: 3-5 days Admitting Diagnosis comment: Intractable nausea, vomiting and epigastric/RUQ abdominal pain FINAL DIAGNOSIS Biliary dyskinesia s/p cholecystectomy Brief Hospital Course Ms. Soriano is a 75 year old female with PMH of chronic pain which is managed with methadone as an outpatient, presented to the emergency room for 4 to 5-day history of intractable nausea, vomiting, epigastric and right upper quadrant abdominal pain. She was evaluated by GI and surgery and ultimately determined that her pain was likely related to biliary dyskinesia given low ejection fraction on testing. She underwent a laparoscopic cholecystectomy on 01/14/21 and has had been uncomplicated postoperative course. Today she is ready for discharge home with home health and the assistance of her daughter. Her home medications are unchanged. She will follow up in clinic in 3 to 5 days to reassess her. She has required 2 L of oxygen intermittently during the hospitalization, so she will undergo 6-minute walk prior to discharge and will receive supplemental oxygen if this is necessary. CONDITION AT DISCHARGE: Improved, Stable Discharge Medications Active Culturelle (Lactobacillus Rhamnosus Gg) 1 Each Cap.sprink 1 Cap PO BID 30 Days Reported Bupropion Xl (Bupropion Hcl) 150 Mg Tab.er.24h 1 Tab PO DAILYWBKFT Acetaminophen 500 Mg Tablet 500 Mg PO PRN Q6HRS PRN Melatonin 5 Mg Tab.rapdis 5 Mg PO HS Meclizine Hcl 25 Mg Tablet 25 Mg PO BID Vitamin D3 (Cholecalciferol (Vitamin D3)) 4,000 Unit Capsule 5,000 Unit PO DAILY [b12 shot] 1 Ml IM MONTHLY Crestor (Rosuvastatin Calcium) 40 Mg Tablet 20 Mg PO HS Oxybutynin Chloride 5 Mg Tablet 15 Mg PO BID Singulair Tablet (Montelukast Sodium) 10 Mg Tablet 10 Mg PO HS Methadone Hcl 5 Mg Tablet 5 Mg PO BID Metformin Hcl 500 Mg Tablet 500 Mg PO BIDWMEALS Lovaza ([place]-3 Acid Ethyl Esters) 1 Gm Capsule 2 Gm PO BID Claritin (Loratadine) 10 Mg Capsule 10 Mg PO DAILY Citalopram Hbr (Citalopram Hydrobromide) 40 Mg Tablet 40 Mg PO DAILY Alprazolam 0.5 Mg Tablet 0.5 Mg PO PRN DAILY PRN Synthroid (Levothyroxine Sodium) 75 Mcg Tablet 1 Tab PO DAILY Diclofenac Sodium 75 Mg Tablet.dr 75 Mg PO DAILY Omeprazole 40 Mg Capsule.dr 40 Mg PO DAILY Vital Signs Vital Signs Date Time Temp Pulse Resp B/P (MAP) Pulse Ox O2 Delivery O2 Flow Rate FiO2 01/17/21 03:00 98.2 72 17 169/85 (113) 95 Nasal Cannula 2.0 98.2 Allergies Allergies Coded Allergies Type Severity Reaction Last Updated Verified No Known Drug Allergies 11/11/13 No Disposition/Orders: D/C to Home w/ HH Justicifation of Admission Dx: Justifications for Admission: Justification of Admission Dx: Yes ANA SMITH MD Jan 17, 2021 07:46
[2021-01-17] MEDS: ONDANSETRON PF 4 MG/2 ML VIAL. IVP PRN (08:13)
[2021-01-17] MEDS: METHADONE 5 MG TABLET. PO SCH (09:04)
[2021-01-17 09:52] LABS: BASO # 0.1 x10^3/uL (0.0-0.2); BASO % 1 % (0-3); EOS # 0.2 x10^3/uL (0.0-0.7); EOS % 2 % (0-3); HEMATOCRIT 41.8 % (36.0-47.0); HEMOGLOBIN 13.3 g/dL (12.0-15.5); LYMPH # 1.4 x10^3/uL (1.0-4.8); LYMPH % 16 % (24-48); MEAN CORPUSCULAR HEMOGLOBIN 26 pg (25-35); MEAN CORPUSCULAR HGB CONC 32 g/dL (31-37); MEAN CORPUSCULAR VOLUME 83 fL (79-100); MONO # 0.6 x10^3/uL (0.0-1.1); MONO % 7 % (0-9); NEUT % 75 % (31-73); PLATELET COUNT 281 x10^3/uL (140-400); RED BLOOD COUNT 5.04 x10^6/uL (3.50-5.40); RED CELL DISTRIBUTION WIDTH 16.7 % (11.5-14.5); WHITE BLOOD COUNT 9.3 x10^3/uL (4.0-11.0)
[2021-01-17 10:10] LABS: CALCIUM 9.1 mg/dL (8.5-10.1); CREATININE 0.9 mg/dL (0.6-1.0); GFR 60.7; POTASSIUM 3.5 mmol/L (3.5-5.1)
[2021-01-17 11:00] VITALS: BP 143/70
--- NOTE | 2021-01-17 11:14 | PDOC ---
SURGICAL PROGRESS NOTE DATE: 01/17/21 TIME: 10:38 Subjective doing pretty well no vomiting eating some Vital Signs Vital Signs Date Time Temp Pulse Resp B/P (MAP) Pulse Ox O2 Delivery O2 Flow Rate FiO2 01/17/21 09:07 95 Room Air 01/17/21 07:00 97.6 74 18 145/67 (93) 2.0 97.6 General: Alert, Oriented X3, Cooperative Abdomen: Soft Labs Laboratory Tests Test 01/17/21 09:20 White Blood Count 9.3 x10^3/uL (4.0-11.0) Red Blood Count 5.04 x10^6/uL (3.50-5.40) Hemoglobin 13.3 g/dL (12.0-15.5) Hematocrit 41.8 % (36.0-47.0) Mean Corpuscular Volume 83 fL (79-100) Mean Corpuscular Hemoglobin 26 pg (25-35) Mean Corpuscular Hemoglobin Concent 32 g/dL (31-37) Red Cell Distribution Width 16.7 % (11.5-14.5) Platelet Count 281 x10^3/uL (140-400) Neutrophils (%) (Auto) 75 % (31-73) Lymphocytes (%) (Auto) 16 % (24-48) Monocytes (%) (Auto) 7 % (0-9) Eosinophils (%) (Auto) 2 % (0-3) Basophils (%) (Auto) 1 % (0-3) Neutrophils # (Auto) 7.0 x10^3/uL (1.8-7.7) Lymphocytes # (Auto) 1.4 x10^3/uL (1.0-4.8) Monocytes # (Auto) 0.6 x10^3/uL (0.0-1.1) Eosinophils # (Auto) 0.2 x10^3/uL (0.0-0.7) Basophils # (Auto) 0.1 x10^3/uL (0.0-0.2) Sodium Level 137 mmol/L (136-145) Potassium Level 3.5 mmol/L (3.5-5.1) Chloride Level 100 mmol/L (98-107) Carbon Dioxide Level 28 mmol/L (21-32) Anion Gap 9 (6-14) Blood Urea Nitrogen 7 mg/dL (7-20) Creatinine 0.9 mg/dL (0.6-1.0) Estimated GFR (Cockcroft-Gault) 60.7 Glucose Level 154 mg/dL (70-99) Calcium Level 9.1 mg/dL (8.5-10.1) Laboratory Tests Test 01/17/21 09:20 White Blood Count 9.3 x10^3/uL (4.0-11.0) Red Blood Count 5.04 x10^6/uL (3.50-5.40) Hemoglobin 13.3 g/dL (12.0-15.5) Hematocrit 41.8 % (36.0-47.0) Mean Corpuscular Volume 83 fL (79-100) Mean Corpuscular Hemoglobin 26 pg (25-35) Mean Corpuscular Hemoglobin Concent 32 g/dL (31-37) Red Cell Distribution Width 16.7 % (11.5-14.5) Platelet Count 281 x10^3/uL (140-400) Neutrophils (%) (Auto) 75 % (31-73) Lymphocytes (%) (Auto) 16 % (24-48) Monocytes (%) (Auto) 7 % (0-9) Eosinophils (%) (Auto) 2 % (0-3) Basophils (%) (Auto) 1 % (0-3) Neutrophils # (Auto) 7.0 x10^3/uL (1.8-7.7) Lymphocytes # (Auto) 1.4 x10^3/uL (1.0-4.8) Monocytes # (Auto) 0.6 x10^3/uL (0.0-1.1) Eosinophils # (Auto) 0.2 x10^3/uL (0.0-0.7) Basophils # (Auto) 0.1 x10^3/uL (0.0-0.2) Sodium Level 137 mmol/L (136-145) Potassium Level 3.5 mmol/L (3.5-5.1) Chloride Level 100 mmol/L (98-107) Carbon Dioxide Level 28 mmol/L (21-32) Anion Gap 9 (6-14) Blood Urea Nitrogen 7 mg/dL (7-20) Creatinine 0.9 mg/dL (0.6-1.0) Estimated GFR (Cockcroft-Gault) 60.7 Glucose Level 154 mg/dL (70-99) Calcium Level 9.1 mg/dL (8.5-10.1) Problem List Problems Medical Problems: (1) Abdominal pain Status: Acute (2) Headache Status: Acute (3) Intractable nausea and vomiting Status: Acute (4) Nausea & vomiting Status: Acute Assessment/Plan ok to dc FU 2 weeks Justicifation of Admission Dx: Justifications for Admission: Justification of Admission Dx: Yes AGUSTIN DOTSON TRANSPORTATION MAINTENANCE OPERATOR Jan 17, 2021 11:14
--- NOTE | 2021-01-17 11:31 | PDOC ---
Date of Service: DATE: 01/17/21 TIME: 11:29 Subjective: Subjective: Tolerating diet. Still feels a little sick sometimes but is much better overall. Stooling, denies pain. Says going home w/ daughter and home health. Objective: Vital Signs: Vital Signs Date Time Temp Pulse Resp B/P (MAP) Pulse Ox O2 Delivery O2 Flow Rate FiO2 01/17/21 10:30 95 Room Air 01/17/21 07:00 97.6 74 18 145/67 (93) 2.0 97.6 Labs: Laboratory Tests Test 01/17/21 09:20 White Blood Count 9.3 x10^3/uL Red Blood Count 5.04 x10^6/uL Hemoglobin 13.3 g/dL Hematocrit 41.8 % Mean Corpuscular Volume 83 fL Mean Corpuscular Hemoglobin 26 pg Mean Corpuscular Hemoglobin Concent 32 g/dL Red Cell Distribution Width 16.7 % Platelet Count 281 x10^3/uL Neutrophils (%) (Auto) 75 % Lymphocytes (%) (Auto) 16 % Monocytes (%) (Auto) 7 % Eosinophils (%) (Auto) 2 % Basophils (%) (Auto) 1 % Neutrophils # (Auto) 7.0 x10^3/uL Lymphocytes # (Auto) 1.4 x10^3/uL Monocytes # (Auto) 0.6 x10^3/uL Eosinophils # (Auto) 0.2 x10^3/uL Basophils # (Auto) 0.1 x10^3/uL Sodium Level 137 mmol/L Potassium Level 3.5 mmol/L Chloride Level 100 mmol/L Carbon Dioxide Level 28 mmol/L Anion Gap 9 Blood Urea Nitrogen 7 mg/dL Creatinine 0.9 mg/dL Estimated GFR (Cockcroft-Gault) 60.7 Glucose Level 154 mg/dL Calcium Level 9.1 mg/dL PE: GEN: NAD - in recliner, facetiming w/ family LUNGS: CTAB HEART: RRR ABD: soft, BS+ NEURO/PSYCH: A & O 3 - much more alert/interactive A/P: N/v, abd pain - better S/p cholecystectomy H/o GERD -- DC per primary. Would continue some sort of acid-outreach rep. Follow-up w/ GI PRN. Justicifation of Admission Dx: Justifications for Admission: Justification of Admission Dx: Yes LENNY ORDONEZ Jan 17, 2021 11:31
--- NOTE | 2021-01-17 12:11 | NUR ---
SW following. Discussed with RN, discharge orders faxed to [facility]. Pt does not need o2 other than for sleep. No further SW needs.
--- NOTE | 2021-01-17 12:50 | NUR ---
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 Discharge education given to both daughter and patient. Tolerated well
--- NOTE | 2021-01-17 19:18 | PATHOLOGY ---
[facility] Accession Number: [id number] . 01 Material submitted: . gallbladder - GALLBLADDER AND CONTENTS . 01 Clinical history: . ABD PAIN LAP SIS INTRACTABLE NAUSEA AND VOMI... . 02 Diagnosis: Gallbladder, laparoscopic cholecystectomy: - Cholesterolosis, focal. - Chronic cholecystitis. . (JPM:mml; 01/17/2021) [facility] 01/17/2021 1244 Local . 02 Comment: There are no calculi identified within the gallbladder lumen or specimen container. There is no evidence of malignancy. . (JPM:mml; 01/17/2021) . 02 Electronically signed: . Singh Pierce MD, Pathologist NPI- [id number] . 01 Gross description: . Fixative: Formalin Labeled: Gallbladder and contents Specimen received: Intact Dimensions: 7.4 x 3.1 x 1.8 cm Serosa: Smooth, yellow-green with a roughened hepatic bed and a full-thickness defect measuring 0.9 x 0.6 cm located at the fundus and measures 6.8 cm from the cystic duct margin Lymph node: No Mucosa: Velvety, green-brown Average wall thickness: 0.6 cm Calculi: No Abnormalities: Described above A1- Dressing Machine Operator body, fundus, and the cystic duct margin(inked black). ([facility]; 01/15/2021) GZA/GZA 01/15/2021 1040 Local . 02 Pathologist provided ICD-10: K81.1, K82.4 . 02 CPT . 062815 Specimen Comment: A courtesy copy of this report has been sent to [phone] Specimen Comment: [id number], Specimen Comment: Report sent to ,DR ONTIVEROS / DR DELGADO Specimen Comment: A duplicate report has been generated due to demographic updates. Performed at: 01 [facility] [address] [id number] MD Joe Long MD Phone: [phone] Performed at: [address] [facility] [id number] MD Singh Pierce MD Phone: [phone]
== END 2021-01-17 12:50 | disposition home health service (06) | DRG 419 ==
LOC: ER 19:23 → 6 SOUTH 01-09 02:49
PROVIDERS: ADMIT Family Medicine; ATTEND Family Medicine
PROC: 0DB68ZX Excision of Stomach, Via Natural or Artificial Opening Endoscopic, Diagnostic (ICD-10-PCS; 2021-01-12)
PROC: 0DB98ZX Excision of Duodenum, Via Natural or Artificial Opening Endoscopic, Diagnostic (ICD-10-PCS; 2021-01-12)
PROC: 0FT44ZZ Resection of Gallbladder, Percutaneous Endoscopic Approach (ICD-10-PCS; principal; 2021-01-14 07:30)
DX: K82.8 Other specified diseases of gallbladder (principal); K29.70 Gastritis, unspecified, without bleeding; E03.9 Hypothyroidism, unspecified; E78.00 Pure hypercholesterolemia, unspecified; F32.9 Major depressive disorder, single episode, unspecified; F41.9 Anxiety disorder, unspecified; G89.29 Other chronic pain; I10 Essential (primary) hypertension; J45.909 Unspecified asthma, uncomplicated; K21.9 Gastro-esophageal reflux disease without esophagitis; M47.816 Spondylosis without myelopathy or radiculopathy, lumbar region; M48.02 Spinal stenosis, cervical region; K21.00 Gastro-esophageal reflux disease with esophagitis, without bleeding; K64.9 Unspecified hemorrhoids; F11.90 Opioid use, unspecified, uncomplicated; Z90.710 Acquired absence of both cervix and uterus
CPT/HCPCS: 36415; 43239; 70450; 71045; 74177; 74250; 76705; 78227; 80048; 80053; 81001; 83605; 83690; 83735; 83880; 84145; 84443; 84484; 85025; 85027; 87040; 88305; 88342; 93005; 94618; 96365; 96375; A4213; A4364; A4657; A4930; A6219; A9537; C9113; J0456; J0690; J0696; J0780; J1100; J1170; J1885; J2060; J2270; J2370; J2405; J2704; J2710; J2765; J2805; J2930; J3010; J3480; J3490; J7030; J7120; Q9967; 97535-GO; 99285-25; G0378

== ENCOUNTER 2021-05-29 15:50 | Inpatient (IN) | payer MEDICARE, OTHER ==
[~2021-05-29] VITALS: Ht 147.3 cm; Wt 68.9 kg
[~2021-05-29 15:50] MED LIST changes: +BUPR150T21 PO; -CITA40TA5 PO; +CITA40TA6 PO; -DOXY100C2 PO; +DOXY100C3 PO; +METH-570 PO; -METH5TAB2 PO
[2021-05-29] MEDS ORDERED: IV NORMAL SALINE 1000ML BAG 1,000 ML IV ONE (19:00)
[2021-05-29] MEDS ORDERED: ONDANSETRON PF 4 MG/2 ML VIAL. IVP ONE (19:15)
[2021-05-29 19:17] LABS: BILIRUBIN,URINE NEGATIVE (NEG); CLARITY,URINE CLEAR; COLOR,URINE YELLOW; NITRITE,URINE NEGATIVE (NEG); PROTEIN,URINE NEGATIVE (NEG-TRACE); UROBILINOGEN,URINE 0.2 mg/dL (0.2 mg/dL)
[2021-05-29 19:18] LABS: BASO # 0.1 x10^3/uL (0.0-0.2); BASO % 1 % (0-3); EOS # 0.2 x10^3/uL (0.0-0.7); EOS % 2 % (0-3); HEMATOCRIT 35.2 % (36.0-47.0); HEMOGLOBIN 11.6 g/dL (12.0-15.5); LYMPH # 2.6 x10^3/uL (1.0-4.8); LYMPH % 24 % (24-48); MEAN CORPUSCULAR HEMOGLOBIN 27 pg (25-35); MEAN CORPUSCULAR HGB CONC 33 g/dL (31-37); MEAN CORPUSCULAR VOLUME 82 fL (79-100); MONO # 1.3 x10^3/uL (0.0-1.1); MONO % 12 % (0-9); NEUT # 6.7 x10^3/uL (1.8-7.7); NEUT % 62 % (31-73); PLATELET COUNT 301 x10^3/uL (140-400); RED CELL DISTRIBUTION WIDTH 15.7 % (11.5-14.5); WHITE BLOOD COUNT 10.9 x10^3/uL (4.0-11.0)
--- NOTE | 2021-05-29 19:19 | PHYS DOC ---
Past Medical History Past Medical History: Anxiety, Asthma, GERD, High Cholesterol, Hypertension, Hypothyroid, Other Additional Past Medical Histor: Thyroid Past Surgical History: Appendectomy, Cholecystectomy Additional Past Surgical Histo: partial thyroidectomy; back Smoking Status: Never Smoker Alcohol Use: None Drug Use: None General Adult EDM: Chief Complaint: ABDOMINAL PAIN HPI: HPI: Patient is a 75 year old female who present to ER for evaluation of right upper quad abdominal pain that been going on off and on for a week. Patient denies any chest pain, no trouble breathing, no cough, no fever. Patient had COVID-19 infection last year. Patient was also vaccinated for COVID-19 as well. Patient denies any urinary symptoms. Patient has history of cholecystectomy and appendectomy. Review of Systems: Review of Systems: Constitutional: Denies fever or chills. [] Eyes: Denies change in visual acuity. [] HENT: Denies nasal congestion or sore throat. [] Respiratory: Denies cough or shortness of breath. [] Cardiovascular: Denies chest pain or edema. [] GI: Positive for right upper quadrant abdominal pain, no nausea vomiting, no diarrhea. : Denies dysuria. [] Musculoskeletal: Denies back pain or joint pain. [] Integument: Denies rash. [] Neurologic: Denies headache, focal weakness or sensory changes. [] Endocrine: Denies polyuria or polydipsia. [] Lymphatic: Denies swollen glands. [] Psychiatric: Denies depression or anxiety. [] Heart Score: C/O Chest Pain: N/A Risk Factors: Risk Factors: DM, Current or recent (<one month) smoker, HTN, HLP, family history of CAD, obesity. Risk Scores: Score 0 - 3: 2.5% MACE over next 6 weeks - Discharge Home Score 4 - 6: 20.3% MACE over next 6 weeks - Admit for Clinical Observation Score 7 - 10: 72.7% MACE over next 6 weeks - Early Invasive Strategies Current Medications: Current Medications Medications (Trade) Dose Ordered Sig/Christopher Start Time Stop Time Status Last Admin Dose Admin Ondansetron HCl (Zofran) 4 mg 1X ONCE 05/29/21 19:15 05/29/21 19:16 DC Sodium Chloride 1,000 ml @ 1,000 mls/hr 1X ONCE 05/29/21 19:00 05/29/21 19:59 Allergies: Allergies: Allergies Coded Allergies Type Severity Reaction Last Updated Verified morphine Allergy Intermediate 05/29/21 Yes Physical Exam: PE: Constitutional: Well developed, well nourished, no acute distress, non-toxic appearance. [] HENT: Normocephalic, atraumatic, bilateral external ears normal, oropharynx moist, no oral exudates, nose normal. [] Eyes: PERRLA, EOMI, conjunctiva normal, no discharge. [] Neck: Normal range of motion, no tenderness, supple, no stridor. [] Cardiovascular:Heart rate regular rhythm, no murmur [] Lungs & Thorax: Bilateral breath sounds clear to auscultation [] Abdomen: Bowel sounds normal, soft, There is tenderness in RUQ, no masses, no pulsatile masses. [] Skin: Warm, dry, no erythema, no rash. [] Back: No tenderness, no CVA tenderness. [] Extremities: No tenderness, no cyanosis, no clubbing, ROM intact, no edema. [] Neurologic: Alert and oriented X 3, normal motor function, normal sensory function, no focal deficits noted. [] Psychologic: Affect normal, judgement normal, mood normal. [] Current Patient Data: Labs: Laboratory Tests Test 05/29/21 17:45 05/29/21 18:20 White Blood Count 10.9 x10^3/uL Red Blood Count 4.30 x10^6/uL Hemoglobin 11.6 g/dL Hematocrit 35.2 % Mean Corpuscular Volume 82 fL Mean Corpuscular Hemoglobin 27 pg Mean Corpuscular Hemoglobin Concent 33 g/dL Red Cell Distribution Width 15.7 % Platelet Count 301 x10^3/uL Neutrophils (%) (Auto) 62 % Lymphocytes (%) (Auto) 24 % Monocytes (%) (Auto) 12 % Eosinophils (%) (Auto) 2 % Basophils (%) (Auto) 1 % Neutrophils # (Auto) 6.7 x10^3/uL Lymphocytes # (Auto) 2.6 x10^3/uL Monocytes # (Auto) 1.3 x10^3/uL Eosinophils # (Auto) 0.2 x10^3/uL Basophils # (Auto) 0.1 x10^3/uL Sodium Level 136 mmol/L Potassium Level 3.7 mmol/L Chloride Level 102 mmol/L Carbon Dioxide Level 28 mmol/L Anion Gap 6 Blood Urea Nitrogen 14 mg/dL Creatinine 0.7 mg/dL Estimated GFR (Cockcroft-Gault) 81.1 BUN/Creatinine Ratio 20 Glucose Level 109 mg/dL Calcium Level 8.5 mg/dL Total Bilirubin 0.2 mg/dL Aspartate Amino Transf (AST/SGOT) 262 U/L Alanine Aminotransferase (ALT/SGPT) 342 U/L Alkaline Phosphatase 124 U/L Troponin I High Sensitivity 7 ng/L AH-Ofu-J-Type Natriuretic Peptide 49 pg/mL Total Protein 8.5 g/dL Albumin 2.9 g/dL Albumin/Globulin Ratio 0.5 Lipase 34 U/L Urine Collection Type Unknown Urine Color Yellow Urine Clarity Clear Urine pH 7.0 Urine Specific Clay <=1.005 Urine Protein Negative mg/dL Urine Glucose (UA) Negative mg/dL Urine Ketones (Stick) Negative mg/dL Urine Blood Negative Urine Nitrite Negative Urine Bilirubin Negative Urine Urobilinogen Dipstick 0.2 mg/dL Urine Leukocyte Esterase Negative Urine RBC Rare /HPF Urine WBC Rare /HPF Urine Squamous Epithelial Cells Few /LPF Urine Bacteria 0 /HPF Current Medications Medications (Trade) Dose Ordered Sig/Christopher Route PRN Reason Start Time Stop Time Status Last Admin Dose Admin Ondansetron HCl (Zofran) 4 mg 1X ONCE IVP 05/29/21 19:15 05/29/21 19:16 DC 05/29/21 19:23 Sodium Chloride 1,000 ml @ 1,000 mls/hr 1X ONCE IV 05/29/21 19:00 05/29/21 19:59 DC 05/29/21 19:23 Fentanyl Citrate (Fentanyl 2ml Vial) 50 mcg 1X ONCE IVP 05/29/21 20:45 05/29/21 20:46 DC 05/29/21 20:44 Fentanyl Citrate (Fentanyl 2ml Vial) 50 mcg 1X ONCE IVP 05/29/21 22:30 05/29/21 22:31 DC 05/29/21 23:14 Iohexol (Omnipaque 300 Mg/ml) 75 ml 1X ONCE IV 05/29/21 22:30 05/29/21 22:31 DC 05/29/21 22:48 Info (CONTRAST GIVEN -- Rx MONITORING) 1 each PRN DAILY PRN MC SEE COMMENTS 05/29/21 22:45 05/31/21 22:44 Ondansetron HCl (Zofran) 4 mg PRN Q8HRS PRN IVP NAUSEA/VOMITING 05/30/21 00:00 05/30/21 23:59 UNV Sodium Chloride 1,000 ml @ 75 mls/hr [id number] IV 05/30/21 00:00 05/30/21 23:59 UNV Vital Signs: Vital Signs Date Time Temp Pulse Resp B/P (MAP) Pulse Ox O2 Delivery O2 Flow Rate FiO2 05/29/21 18:47 98.9 109 18 143/63 (89) 94 Room Air 98.9 EKG: EKG: [] Radiology/Procedures: Radiology/Procedures: [][facility] [address] [place] [address] IMAGING REPORT Signed PATIENT: HIRAL PATEL ACCOUNT: [id number] : 1945 LOCATION: ER AGE: 75 SEX: F EXAM STATUS: REG ER ORD. PHYSICIAN: SIDNEY SABILLON DO REASON: ABDOMINAL PAIN, OMNI 300 75 ML IV PROCEDURE: CT ABD PELV W/ IV CONTRST ONLY PQRS Compliance Statement: One or more of the following individualized dose reduction techniques were utilized for this examination: 1. Automated exposure control 2. Adjustment of the mA and/or kV according to patient size 3. Use of iterative reconstruction technique CT abdomen/pelvis with contrast 05/29/2021 10:26 PM INDICATION: Abdominal pain COMPARISON: CT abdomen/pelvis 01/09/2021 TECHNIQUE: Multiple axial CT images of the abdomen and pelvis were obtained after the intravenous administration of 75 mL Omnipaque 300. Coronal and sagittal reformats are provided. FINDINGS: Patchy consolidative changes identified at the posterior left lung base. Bandlike and patchy opacities identified within the inferior lingula, medial segment right middle lobe and medial basal segment right lower lobe. These findings are chronic and could be associated with scarring versus chronic inflammatory process. Heart size within normal limits. Liver, spleen, adrenal glands are normal in appearance. There is moderate fatty atrophy of the head and body of the pancreas. Gallbladder surgically absent. No intrahepatic or extrahepatic biliary ductal dilatation. Trace perihepatic ascites. Abdominal aorta is tortuous, normal in caliber with mild calcified atheromatous plaque. No free intraperitoneal air. Stomach is normal in appearance. Small and large bowel are normal in caliber. There is no evidence for bowel obstruction. There are no pericolonic inflammatory changes. Appendix not definitively visualized. The kidneys enhance symmetrically. There is no suspicious renal mass. There is no hydronephrosis. There are no suspected calculi within the kidneys, ureters or urinary bladder. There is nonspecific calcification along the posterior left bladder wall (series 2, image 64) which is stable. No suspicious pelvic mass. Interbody fusion identified at L4-L5 with associated laminectomy from L3-L4 through L5-S1. No suspicious osseous normality. IMPRESSION: Chronic consolidative changes identified at the lung bases as well as involving the inferior lingula and right middle lobe. Findings may reflect areas of scarring. No acute abnormality identified in abdomen and pelvis. Trace perihepatic ascites. Eccentric calcification along the posterolateral left bladder wall is nonspecific. Correlation with cystoscopy could be of benefit. Electronically signed by: Adilia Tolbert MD (05/29/2021 11:21 PM) [facility] DICTATED and SIGNED BY: ADILIA TOLBERT MD DATE: 05/29/21 [id number] [facility] [address] [place] [address] IMAGING REPORT Signed PATIENT: HIRAL PATEL ACCOUNT: [id number] : 1945 LOCATION: ER AGE: 75 SEX: F EXAM STATUS: REG ER ORD. PHYSICIAN: SIDNEY SABILLON DO REASON: ruq abdominal pain, suspected obstructed CBD, PROCEDURE: ABDOMEN LTD Clinical History: Elevated liver enzymes. Technique: Sonographic examination of the right upper quadrant of the abdomen was performed and multiple static images were obtained. Comparison: none Findings: Liver: The majority of the liver is visualized and appears homogeneous. Common bile duct: Appears normal and measures 4 mm in diameter. Gallbladder: Removed. Pancreas: is not well visualized due to overlying bowel gas. Right kidney: appears normal and measures 10 cm in length. Main Portal Vein: Normal hepatopedal flow Aorta: normal IVC: normal Impression: No acute findings. Electronically signed by: Daljit Lew III, MD (05/29/2021 10:16 PM) [facility] DICTATED and SIGNED BY: DALJIT LEW III, MD DATE: 05/29/21 [id number] 0 Course & Med Decision Making: Course & Med Decision Making Pertinent Labs and Imaging studies reviewed. (See chart for details) Patient is a 75-year-old female who presented to ER due to right upper quad abdominal pain for 1 week. Her liver function tests are elevated. CT scan of abdomen pelvis and ultrasound did not show any acute problem. Patient continued to be in pain. Patient WILL be admitted to hospital for further evaluation and treatment. Discussed with Dr. Aria Ontiveros, PATIENT'S PCP who agreed to admit patient. Dragon Disclaimer: Dragon Disclaimer: This electronic medical record was generated, in whole or in part, using a voice recognition dictation system. Departure Departure Impression: Primary Impression: Intractable abdominal pain Additional Impression: Elevated LFTs Disposition: ADMITTED INPATIENT Admitting Physician: Aria Ontiveros Condition: IMPROVED Referrals: ARIA ONTIVEROS MD (PCP) SIDNEY SABILLON DO May 29, 2021 19:19
[2021-05-29 19:25] LABS: BACTERIA,URINE 0 /HPF (0-FEW); RBC,URINE RARE /HPF (0-2); WBC,URINE RARE /HPF (0-4)
[2021-05-29 19:28] LABS: CALCIUM 8.5 mg/dL (8.5-10.1); CREATININE 0.7 mg/dL (0.6-1.0); GFR 81.1; POTASSIUM 3.7 mmol/L (3.5-5.1)
[2021-05-29 19:36] LABS: ALBUMIN 2.9 g/dL (3.4-5.0); ALBUMIN/GLOBULIN RATIO 0.5 (1.0-1.7); TOTAL BILIRUBIN 0.2 mg/dL (0.2-1.0); TOTAL PROTEIN 8.5 g/dL (6.4-8.2)
[2021-05-29] MEDS ORDERED: fentaNYL PF VIAL 100 MCG/2 ML VIAL IVP ONE ×2 (20:45→22:30)
--- NOTE | 2021-05-29 22:19 | RAD ---
Clinical History: Elevated liver enzymes. Technique: Sonographic examination of the right upper quadrant of the abdomen was performed and mult iple static images were obtained. Comparison: none Findings: Liver: The majority of the liver is visualized and appears homogeneous. Common bile duct: Appears normal and measures 4 mm in diameter. Gallbladder: Removed. Pancreas: is not well visualized due to overlying bowel gas. Right kidney: appears normal and measures 10 cm in length. Main Portal Vein: Normal hepatopedal flow Aorta: normal IVC: normal Impression: No acute findings. Electronically signed by: Talon Suárez III, MD (05/29/2021 10:16 PM) [facility]
[2021-05-29] MEDS ORDERED: IOHEXOL 300 MG/ML 100ML VIAL. IV ONE (22:30)
[2021-05-29] MEDS ORDERED: CONTRAST GIVEN. MC PRN (22:45)
--- NOTE | 2021-05-29 23:24 | RAD ---
PQRS Compliance Statement: One or more of the following individualized dose reduction techniques were utilized for this examinat ion: 1. Automated exposure control 2. Adjustment of the mA and/or kV according to patient size 3. Use of iterative reconstruction technique CT abdomen/pelvis with contrast 05/29/2021 10:26 PM INDICATION: Abdominal pain COMPARISON: CT abdomen/pelvis 01/09/2021 TECHNIQUE: Multiple axial CT images of the abdomen and pelvis were obtained after the intravenous adm inistration of 75 mL Omnipaque 300. Coronal and sagittal reformats are provided. FINDINGS: Patchy consolidative changes identified at the posterior left lung base. Bandlike and patchy opacitie s identified within the inferior lingula, medial segment right middle lobe and medial basal segment r ight lower lobe. These findings are chronic and could be associated with scarring versus chronic infl ammatory process. Heart size within normal limits. Liver, spleen, adrenal glands are normal in appear ance. There is moderate fatty atrophy of the head and body of the pancreas. Gallbladder surgically ab sent. No intrahepatic or extrahepatic biliary ductal dilatation. Trace perihepatic ascites. Abdominal aorta is tortuous, normal in caliber with mild calcified atheromatous plaque. No free intraperitonea l air. Stomach is normal in appearance. Small and large bowel are normal in caliber. There is no evid ence for bowel obstruction. There are no pericolonic inflammatory changes. Appendix not definitively visualized. The kidneys enhance symmetrically. There is no suspicious renal mass. There is no hydronephrosis. The re are no suspected calculi within the kidneys, ureters or urinary bladder. There is nonspecific calc ification along the posterior left bladder wall (series 2, image 64) which is stable. No suspicious p elvic mass. Interbody fusion identified at L4-L5 with associated laminectomy from L3-L4 through L5-S1 . No suspicious osseous normality. IMPRESSION: Chronic consolidative changes identified at the lung bases as well as involving the inferior lingula and right middle lobe. Findings may reflect areas of scarring. No acute abnormality identified in abdomen and pelvis. Trace perihepatic ascites. Eccentric calcification along the posterolateral left bladder wall is nonspecific. Correlation with c ystoscopy could be of benefit. Electronically signed by: Radha Lamas MD (05/29/2021 11:21 PM) [facility]
[2021-05-30] MEDS ORDERED: ONDANSETRON PF 4 MG/2 ML VIAL. IVP PRN
[2021-05-30] MEDS ORDERED: fentaNYL PF VIAL 100 MCG/2 ML VIAL IVP ONE (02:00)
[2021-05-30] MEDS: IV NORMAL SALINE 1000ML BAG 1,000 ML IV SCH ×2 (02:16→13:20)
[2021-05-30] MEDS: DICLOFENAC SODIUM 25 MG TABLET.DR PO SCH (08:49)
[2021-05-30] MEDS: PANTOPRAZOLE 40 MG TABLET.DR. PO SCH (08:50)
[2021-05-30] MEDS: buPROPion XL 150 MG TAB.ER.24H. PO SCH (08:50)
[2021-05-30] MEDS: LEVOTHYROXINE 75 MCG TABLET PO SCH (08:51)
[2021-05-30] MEDS: POTASSIUM CL 20MEQ D5-0.45NACL 1,000 ML IV SCH ×2 (08:53→21:46)
--- NOTE | 2021-05-30 09:39 | PDOC2 ---
GI CONSULT Date of Service: DATE: 05/30/21 TIME: 09:39 Reason For Consult: RUQ pain, elevated LFTs HPI: HPI: 75 y/o female who has seen Dr. Lawrence in the past. Chronic intermittent RUQ pain worse x 2 weeks - "ache" that is worse w/ deep inspiration. No change with eating or stooling. Pepto might have helped, avoidance of yogurt did not. Denies n/v, radiation of pain, diarrhea, constipation, hematochezia, melena, change in appetite, or weight loss. No rash or fever. Had a "green avocado poop" once. Says she saw PCP last but didn't tell him because she thought it would just go away. Reviewed symptoms and medications w/ daughter Laura via phone. Chronic pain on methadone and diclofenac. Additionally takes omeprazole QD and B12 inj Q month. No longer on metformin, remains on statin. No significant alcohol history. H/o GERD controlled w/ PPI. EGD for n/v and upper abdominal pain in 12/2020 showed normal esophagus, antral gastritis (biopsy showed mild chronic gastritis, negative for H. pylori), and normal duodenum (random biopsy unremarkable, negative for sprue). EGD for dysphagia in 04/2020 showed mild distal esophagitis (biopsy c/w reflux, no Calderon's) w/ associated esophageal narrowing (dilated 56Fr), erosive gastritis (negative for H. pylori and intestinal metaplasia), and normal duodenum. Another EGD in 2009 showed benign intrinsic esophageal stenosis (dilated), reflux esophagitis (no Calderon's), H. pylori negative gastritis, and normal duodenal biopsies. Colonoscopy 11/2014: two hyperplastic polyps in recto-sigmoid colon, normal mucosa throughout entire colon, internal hemorrhoids. Did have two adenomatous polyps on colonoscopy in 2003. SBS in 12/2020 for vomiting and abdominal pain was unremarkable. S/p cholecystectomy in 12/2020 for biliary dyskinesia - path showed focal cholest erolosis and chronic cholecystitis, no cholelithiasis. Denies liver, pancreas, and PUD history. Noted w/ mild anemia (Hgb 11.6 - was in 12-13 range in December) and elevated LFTs (bili 0.2, AST 262, ALT 342, Alk Phos 124). LFTs normal in the past. US unrevealing, CT noted trace perihepatic ascites. She is asking for more pain medication. PMH: PMH: HTN, asthma, HLD, hypothyroidism, depression/anxiety, chronic pain, cervical stenosis, endometriosis, COVID partial thyroidectomy, tonsillectomy, hysterectomy, neck surgery, appendectomy, cholecystectomy FH: Family History: No pertinent hx (denies GI cancers), Other ("my mother said we had bad livers from fatty foods") Social History: Smoke: No ALCOHOL: none Drugs: None ROS: GEN: Denies fevers, chills, sweats HEENT: Denies blurred vision, sore throat CV: Denies chest pain RESP: Denies shortness of air, cough GI: Per HPI : Denies hematuria, dysuria ENDO: Denies weight changes NEURO: Denies confusion, dizziness MSK: Denies weakness, joint pain/swelling SKIN: Denies jaundice, pruritus Vitals: Vitals: Vital Signs Date Time Temp Pulse Resp B/P (MAP) Pulse Ox O2 Delivery O2 Flow Rate FiO2 05/30/21 04:29 87 137/65 (89) 95 Nasal Cannula 2.0 05/30/21 02:17 18 05/29/21 18:47 98.9 98.9 Labs: Labs: Laboratory Tests Test 05/29/21 17:45 05/29/21 18:20 White Blood Count 10.9 x10^3/uL (4.0-11.0) Red Blood Count 4.30 x10^6/uL (3.50-5.40) Hemoglobin 11.6 g/dL (12.0-15.5) Hematocrit 35.2 % (36.0-47.0) Mean Corpuscular Volume 82 fL (79-100) Mean Corpuscular Hemoglobin 27 pg (25-35) Mean Corpuscular Hemoglobin Concent 33 g/dL (31-37) Red Cell Distribution Width 15.7 % (11.5-14.5) Platelet Count 301 x10^3/uL (140-400) Neutrophils (%) (Auto) 62 % (31-73) Lymphocytes (%) (Auto) 24 % (24-48) Monocytes (%) (Auto) 12 % (0-9) Eosinophils (%) (Auto) 2 % (0-3) Basophils (%) (Auto) 1 % (0-3) Neutrophils # (Auto) 6.7 x10^3/uL (1.8-7.7) Lymphocytes # (Auto) 2.6 x10^3/uL (1.0-4.8) Monocytes # (Auto) 1.3 x10^3/uL (0.0-1.1) Eosinophils # (Auto) 0.2 x10^3/uL (0.0-0.7) Basophils # (Auto) 0.1 x10^3/uL (0.0-0.2) Sodium Level 136 mmol/L (136-145) Potassium Level 3.7 mmol/L (3.5-5.1) Chloride Level 102 mmol/L (98-107) Carbon Dioxide Level 28 mmol/L (21-32) Anion Gap 6 (6-14) Blood Urea Nitrogen 14 mg/dL (7-20) Creatinine 0.7 mg/dL (0.6-1.0) Estimated GFR (Cockcroft-Gault) 81.1 BUN/Creatinine Ratio 20 (6-20) Glucose Level 109 mg/dL (70-99) Calcium Level 8.5 mg/dL (8.5-10.1) Total Bilirubin 0.2 mg/dL (0.2-1.0) Aspartate Amino Transf (AST/SGOT) 262 U/L (15-37) Alanine Aminotransferase (ALT/SGPT) 342 U/L (14-59) Alkaline Phosphatase 124 U/L (46-116) Troponin I High Sensitivity 7 ng/L (4-50) BO-Scq-O-Type Natriuretic Peptide 49 pg/mL (0-449) Total Protein 8.5 g/dL (6.4-8.2) Albumin 2.9 g/dL (3.4-5.0) Albumin/Globulin Ratio 0.5 (1.0-1.7) Lipase 34 U/L (73-393) Urine Collection Type Unknown Urine Color Yellow Urine Clarity Clear Urine pH 7.0 (<5.0-8.0) Urine Specific Gipsy <=1.005 (1.000-1.030) Urine Protein Negative mg/dL (NEG-TRACE) Urine Glucose (UA) Negative mg/dL (NEG) Urine Ketones (Stick) Negative mg/dL (NEG) Urine Blood Negative (NEG) Urine Nitrite Negative (NEG) Urine Bilirubin Negative (NEG) Urine Urobilinogen Dipstick 0.2 mg/dL (0.2 mg/dL) Urine Leukocyte Esterase Negative (NEG) Urine RBC Rare /HPF (0-2) Urine WBC Rare /HPF (0-4) Urine Squamous Epithelial Cells Few /LPF Urine Bacteria 0 /HPF (0-FEW) Allergies: Coded Allergies: morphine (Verified Allergy, Intermediate, 05/29/21) Medications: Current Medications Medications (Trade) Dose Ordered Sig/Christopher Route PRN Reason Start Time Stop Time Status Last Admin Dose Admin Ondansetron HCl (Zofran) 4 mg 1X ONCE IVP 05/29/21 19:15 05/29/21 19:16 DC 05/29/21 19:23 Sodium Chloride 1,000 ml @ 1,000 mls/hr 1X ONCE IV 05/29/21 19:00 05/29/21 19:59 DC 05/29/21 19:23 Fentanyl Citrate (Fentanyl 2ml Vial) 50 mcg 1X ONCE IVP 05/29/21 20:45 05/29/21 20:46 DC 05/29/21 20:44 Fentanyl Citrate (Fentanyl 2ml Vial) 50 mcg 1X ONCE IVP 05/29/21 22:30 05/29/21 22:31 DC 05/29/21 23:14 Iohexol (Omnipaque 300 Mg/ml) 75 ml 1X ONCE IV 05/29/21 22:30 05/29/21 22:31 DC 05/29/21 22:48 Sodium Chloride 1,000 ml @ 75 mls/hr [id number] IV 05/30/21 00:00 05/30/21 23:59 05/30/21 02:16 Fentanyl Citrate (Fentanyl 2ml Vial) 50 mcg 1X ONCE IVP 05/30/21 02:00 05/30/21 02:01 DC 05/30/21 02:17 Bupropion HCl (Wellbutrin Xl) 150 mg [id number] PO 05/30/21 09:00 05/30/21 08:50 Levothyroxine Sodium (Synthroid) 75 mcg DAILY06 PO 05/30/21 09:00 05/30/21 08:51 Diclofenac Sodium (Voltaren) 75 mg DAILY PO 05/30/21 09:00 05/30/21 08:49 Pantoprazole Sodium (Protonix) 40 mg DAILYAC PO 05/30/21 09:00 05/30/21 08:50 Potassium Chloride/Dextrose/ Sod Cl 1,000 ml @ 75 mls/hr [id number] IV 05/30/21 08:30 05/30/21 08:53 Imaging: Imaging: Abd US 05/29 Findings: Liver: The majority of the liver is visualized and appears homogeneous. Common bile duct: Appears normal and measures 4 mm in diameter. Gallbladder: Removed. Pancreas: is not well visualized due to overlying bowel gas. Right kidney: appears normal and measures 10 cm in length. Main Portal Vein: Normal hepatopedal flow Aorta: normal IVC: normal Impression: No acute findings. CT A/P 05/29 FINDINGS: Patchy consolidative changes identified at the posterior left lung base. Bandlike and patchy opacities identified within the inferior lingula, medial segment right middle lobe and medial basal segment right lower lobe. These findings are chronic and could be associated with scarring versus chronic inflammatory process. Heart size within normal limits. Liver, spleen, adrenal glands are normal in appearance. There is moderate fatty atrophy of the head and body of the pancreas. Gallbladder surgically absent. No intrahepatic or extrahep atic biliary ductal dilatation. Trace perihepatic ascites. Abdominal aorta is tortuous, normal in caliber with mild calcified atheromatous plaque. No free intraperitoneal air. Stomach is normal in appearance. Small and large bowel are normal in caliber. There is no evidence for bowel obstruction. There are no pericolonic inflammatory changes. Appendix not definitively visualized. The kidneys enhance symmetrically. There is no suspicious renal mass. There is no hydronephrosis. There are no suspected calculi within the kidneys, ureters or urinary bladder. There is nonspecific calcification along the posterior left bladder wall (series 2, image 64) which is stable. No suspicious pelvic mass. Interbody fusion identified at L4-L5 with associated laminectomy from L3-L4 through L5-S1. No suspicious osseous normality. IMPRESSION: Chronic consolidative changes identified at the lung bases as well as involving the inferior lingula and right middle lobe. Findings may reflect areas of scarring. No acute abnormality identified in abdomen and pelvis. Trace perihepatic ascites. Eccentric calcification along the posterolateral left bladder wall is no nspecific. Correlation with cystoscopy could be of benefit. PE: GEN: seems uncomfortable - cooperative, was watching tv in ER HEENT: Atraumatic, PERRL LUNGS: clear anteriorly, NC 2L HEART: RRR ABD: NABS, S/ND, RUQ discomfort under ribs EXTREMITY: No edema SKIN: No rashes, no jaundice NEURO/PSYCH: A & O 3, probably some forgetfulness - daughter helps supplement history via phone, a bit flat - similar to last time we saw her but more communicative this time A/P: A/P: RUQ pain - apparently chronic but now much worse Elevated LFTs, mild anemia H/o GERD - on PPI QD, last EGD unremarkable 12/2020 CRC screen - benign polyps in 2014 S/p cholecystectomy Chronic pain on methadone and NSAID H/o COVID infection -- Some issues w/ pain in the past, never with elevated LFTs though. Check viral Hepatitis panel, trend labs. D/w Dr. Lawrence - may need to consider MRCP. Continue PPI. Check anemia parameters for completeness. Okay to advance diet per GI. Defer pain management to primary. LENNY ORDONEZ May 30, 2021 09:39
--- NOTE | 2021-05-30 10:41 | HP ---
DATE OF SERVICE: 05/30/2021 ADMIT DATE: 05/29/2021 CHIEF COMPLAINT: Upper abdominal pain. HISTORY OF PRESENT ILLNESS: This 75-year-old white female cholecystectomy several months ago after abdominal pain revealed acalculous cholecystitis. She recently has been having some right upper quadrant pain without nausea, vomiting, , fever or any other specific symptoms. She has not started any new medications. She is a nondrinker. Denies chills or other complaints PAST MEDICAL HISTORY: Well documented in the old record. MEDICATIONS: Reviewed. General status is stable. ALLERGIES: No allergies are known. SOCIAL HISTORY: Nonsmoker. , lives with daughter. Nondrinker to my knowledge. FAMILY HISTORY: Unremarkable. REVIEW OF SYSTEMS: No other complaints. OBJECTIVE: ENT: Anicteric; otherwise all within normal limits. NECK: No masses, nodes or bruits. LUNGS: Clear without tachypnea. CARDIOVASCULAR: Regular rate. No irregular beat or murmur. ABDOMEN: Mildly tender in the right upper quadrant. No guarding, masses, or rebound. EXTREMITIES: Good pedal and radial pulses. No edema. No joint or skin lesions. NEUROLOGIC: Physiologic. No tremors are noted. Mental status intact. Affect is basically normal per her. LABORATORY STUDIES: Showed evidence of transaminitis with elevated alkaline phosphatase. Bilirubin was normal. There are no previous lab values to compare to at this time. CT scan of the abdomen and pelvis were unremarkable. ASSESSMENT: Right upper quadrant abdominal pain associated with transaminitis of unknown duration and etiology. No sign of anatomic pathology on CT scan raising the question of some sort of drug-induced and/or fatty liver induced problem. She is a mild diabetic, but well controlled. She does take rosuvastatin for lipid management and has been on this for an unknown period of time. Otherwise, stable with depression, well controlled diabetes, hypothyroidism and general status. No sign of ductal dilation taking the proper attained common duct stone with normal bilirubin unlikely. PLAN: We will hold rosuvastatin and follow liver functions for now. Liquid diet, IV fluid hydration. GI consultation and further evaluation will depend on pain and abnormalities. MICHELE/CARLYLE DR: Will TID: [id number]
[2021-05-30] MEDS: CITALOPRAM 20 MG TABLET. PO SCH (11:07)
[2021-05-30] MEDS: METHADONE 5 MG TABLET. PO SCH ×2 (11:07→21:45)
[2021-05-30 13:47] LABS: PROTHROMBIN TIME PATIENT 13.3 SEC (11.7-14.0)
[2021-05-30] MEDS ORDERED: LIDO:MAALOX 1:1 20 ML SINGLE DOSE. PO PRN (14:15)
[2021-05-30 20:30] VITALS: BP 167/64
[2021-05-30] MEDS ORDERED: NON FORMULARY ITEM (Melatonin 5 MG) PO SCH (21:00)
[2021-05-30] MEDS: DICYCLOMINE HCL 10 MG CAPSULE PO PRN (21:45)
[2021-05-30] MEDS: ALPRAZolam 0.5 MG TABLET PO PRN (21:45)
[2021-05-30 23:00] VITALS: BP 143/75
[2021-05-31 03:00] VITALS: BP 133/59
[2021-05-31] MEDS: LEVOTHYROXINE 75 MCG TABLET PO SCH (05:46)
[2021-05-31 07:00] VITALS: BP 137/107
[2021-05-31 07:41] LABS: ALBUMIN 2.5 g/dL (3.4-5.0); DIRECT BILIRUBIN 0.1 mg/dL (0.0-0.2); TOTAL BILIRUBIN 0.2 mg/dL (0.2-1.0); TOTAL PROTEIN 7.6 g/dL (6.4-8.2)
[2021-05-31] MEDS: buPROPion XL 150 MG TAB.ER.24H. PO SCH (07:57)
[2021-05-31] MEDS: PANTOPRAZOLE 40 MG TABLET.DR. PO SCH (07:57)
--- NOTE | 2021-05-31 08:48 | PDOC ---
Provider Note Date of Service: DATE: 05/31/21 TIME: 08:45 Provider Note still having RUQ pain, no emesis or new sxs- vss, no temp, no rash seen= TAs better , alk phos lower , viral all neg- source of RUQ pain and transaminitis not clear, i stopped crestor 05/30 to assess response- do d dimer, cxr as pain is pleuritic, follow TAs- bili ok, not sure mrcp useful unless pain persists, may need egd also Justifications for Admission Other Justification ARIA ONTIVEROS MD May 31, 2021 08:48
[2021-05-31] MEDS ORDERED: IOHEXOL 300 MG/ML 100ML VIAL. IV ONE (09:15)
--- NOTE | 2021-05-31 09:44 | PDOC ---
Date of Service: DATE: 05/31/21 TIME: 09:35 Subjective: Subjective: RUQ pain - worse with deep breaths. Again tells me unchanged with eating and stooling, but also now reports she was not eating much at home and tried changing her diet (avoidance of yogurt and soda) which was ineffective. H/o constipation - says often has "blowouts" of gas with a little stool, takes mineral oil at home. Likes to avoid hard stools because she occasionally sees drops of blood in the toilet. Pain unchanged with stooling. Becomes tearful - wants them to find something so she can go home, doesn't understand why her daughter can't stay with her, tells me again about having COVID and she was "waiting to just ," mentions her passed about two years ago and she wishes he could be here. Objective: Objective: D/w nurse - many complaints (wondered why she was given liquids this morning since she had eggs yesterday), ongoing pain, etc. Vital Signs: Vital Signs Date Time Temp Pulse Resp B/P (MAP) Pulse Ox O2 Delivery O2 Flow Rate FiO2 05/31/21 08:13 Room Air 05/31/21 07:00 97.7 74 16 137/107 (117 95 97.7 Labs: Laboratory Tests Test 05/30/21 10:45 05/30/21 13:30 05/30/21 14:05 05/31/21 06:40 Hepatitis A IgM Antibody Nonreactive Hepatitis B Surface Antigen Nonreactive Hepatitis B Core IgM Antibody Nonreactive Hepatitis C IgG Antibody Nonreactive Prothrombin Time 13.3 SEC Prothromb Time International Ratio 1.0 Iron Level 46 ug/dL Total Iron Binding Capacity 389 ug/dL Iron Saturation 12 % Vitamin B12 Level > 2000 pg/mL Lactic Acid Level 1.3 mmol/L Total Bilirubin 0.2 mg/dL Direct Bilirubin 0.1 mg/dL Aspartate Amino Transf (AST/SGOT) 154 U/L Alanine Aminotransferase (ALT/SGPT) 249 U/L Alkaline Phosphatase 110 U/L Total Protein 7.6 g/dL Albumin 2.5 g/dL PE: GEN: uncomfortable - sitting in recliner clutching RUQ LUNGS: CTAB HEART: RRR ABD: soft, BS+, RUQ discomfort NEURO/PSYCH: A & O 3, tearful, anxious A/P: RUQ pain NIC - unremarkable EGD 12/2020, benign polyps on colonoscopy in 2015 Elevated LFTs (better, viral Hep negative) H/o GERD, s/p cholecystectomy (no IOC, no stones on path) Chronic pain on methadone and NSAID Anxiety/depression -- Unclear cause of pain and abnormal LFTs - ?SOD - will ask for MRCP. Unremarkable EGD earlier this year and has been compliant w/ PPI per discussion w/ daughter. Will review all with Dr. Lawrence. Justicifation of Admission Dx: Justifications for Admission: Justification of Admission Dx: Yes ELNNY ORDONEZ May 31, 2021 09:44
[2021-05-31] MEDS ORDERED: BISACODYL 5 MG TABLET.DR. PO PRN (09:45)
[2021-05-31 11:00] VITALS: BP 137/57
--- NOTE | 2021-05-31 11:13 | NUR ---
SW following. Discussed with RN, pt from home alone, room air, clear liquid diet (ADAT). Pt having a chest CT today. RN advised no SW needs at this time. SW will continue to follow.
[2021-05-31] MEDS: CITALOPRAM 20 MG TABLET. PO SCH (11:14)
[2021-05-31] MEDS: DICLOFENAC SODIUM 25 MG TABLET.DR PO SCH (11:14)
[2021-05-31] MEDS: METHADONE 5 MG TABLET. PO SCH ×2 (11:15→21:25)
[2021-05-31] MEDS: POLYETHYLENE GLYCOL 3350 17 GM PACKET. PO SCH (11:18)
--- NOTE | 2021-05-31 11:40 | RAD ---
EXAM: CT CHEST WITH CONTRAST HISTORY: Right upper quadrant pleuritic pain COMPARISON: CT chest 11/06/2019 TECHNIQUE: Helical CT of the chest performed after administration of 75 mL Omnipaque 300 intravenous contrast. Coronal and sagittal reformats were obtained. One or more of the following individualized dose reduction techniques were utilized for this examinat ion: 1. Automated exposure control 2. Adjustment of the mA and/or kV according to patient size 3. Use of iterative reconstruction technique. FINDINGS: Thyroid gland and thoracic inlet: Right thyroid lobe is absent or atrophic. Left thyroid lobe is unre markable. Heart and great vessels: Heart is normal in size. There are coronary artery calcifications. No perica rdial effusion. The thoracic aorta is normal in caliber Mediastinum and herrera: There are small mediastinal and hilar lymph nodes, some of which have increased in size from 11/16/2019. For example, a subcarinal lymph node now measures 7 mm short axis, previousl y 4 mm short axis. There are calcified lower right paratracheal and right hilar lymph nodes. Lungs and pleura: Unchanged bandlike confluent opacity in the left lower lobe. There are mild peribro nchial and posterior medial groundglass opacities in the lower lobes. There are additional mild perib ronchial groundglass opacities in the right middle lobe and to a small amount in the right greater th an left upper lobes. This is increased from 11/06/2019. There is no pleural effusion. Central airways a re clear. Unchanged mild elevation of the left hemidiaphragm. Chest wall and axillae: No axillary lymphadenopathy. The chest wall is unremarkable. Upper abdomen: The gallbladder is surgically absent. Bones: There is degenerative disc disease in the lower thoracic and upper lumbar spine. Degenerative disc disease in the lower cervical and upper thoracic spine. There are surgical changes of posterior decompression and fusion in the cervical spine, incompletely visualized. IMPRESSION: 1. Increased mild bilateral groundglass opacities greatest in the posterior medial lower lobes and in a peribronchial distribution elsewhere. This is nonspecific and likely infectious or inflammatory in etiology. 2. Unchanged bandlike opacity in the left lower lobe, likely atelectasis or scarring. 3. Mildly increased size of a few small mediastinal lymph nodes, likely reactive. Electronically signed by: Roxy Stack MD (05/31/2021 11:38 AM) [id number]
[2021-05-31 15:00] VITALS: BP 143/70
[2021-05-31] MEDS: POTASSIUM CL 20MEQ D5-0.45NACL 1,000 ML IV SCH (15:16)
[2021-05-31 19:00] VITALS: BP 129/73
[2021-05-31 23:00] VITALS: BP 123/60
[2021-06-01] MEDS: POTASSIUM CL 20MEQ D5-0.45NACL 1,000 ML IV SCH ×2 (02:13→16:30)
[2021-06-01] MEDS: fentaNYL PF VIAL 100 MCG/2 ML VIAL IVP PRN ×2 (02:47→17:42)
[2021-06-01 03:00] VITALS: BP 141/72
[2021-06-01 04:43] LABS: HEMATOCRIT 36.6 % (36.0-47.0); HEMOGLOBIN 11.7 g/dL (12.0-15.5); RED BLOOD COUNT 4.37 x10^6/uL (3.50-5.40); RED CELL DISTRIBUTION WIDTH 16.5 % (11.5-14.5); WHITE BLOOD COUNT 8.8 x10^3/uL (4.0-11.0)
[2021-06-01 05:21] LABS: ALBUMIN 2.7 g/dL (3.4-5.0); DIRECT BILIRUBIN 0.1 mg/dL (0.0-0.2); TOTAL BILIRUBIN 0.3 mg/dL (0.2-1.0); TOTAL PROTEIN 8.4 g/dL (6.4-8.2)
[2021-06-01 07:30] VITALS: BP 130/67
[2021-06-01] MEDS: POLYETHYLENE GLYCOL 3350 17 GM PACKET. PO SCH (09:00)
[2021-06-01] MEDS: DICLOFENAC SODIUM 25 MG TABLET.DR PO SCH (10:01)
[2021-06-01] MEDS: CITALOPRAM 20 MG TABLET. PO SCH (10:02)
[2021-06-01] MEDS: PANTOPRAZOLE 40 MG TABLET.DR. PO SCH (10:02)
[2021-06-01] MEDS: LEVOTHYROXINE 75 MCG TABLET PO SCH (10:02)
[2021-06-01] MEDS: buPROPion XL 150 MG TAB.ER.24H. PO SCH (10:02)
[2021-06-01] MEDS: METHADONE 5 MG TABLET. PO SCH ×2 (10:06→20:50)
[2021-06-01 10:51] VITALS: BP 137/57
--- NOTE | 2021-06-01 11:05 | PDOC ---
Date of Service: DATE: 06/01/21 TIME: 10:59 Subjective: Subjective: Feels about the same. Might have felt better after eating last night? Doesn't want liquid diet - wants oatmeal. Objective: Objective: 1 stool charted 05/31. Vital Signs: Vital Signs Date Time Temp Pulse Resp B/P (MAP) Pulse Ox O2 Delivery O2 Flow Rate FiO2 06/01/21 10:51 98.1 76 20 137/57 (83) 95 Room Air 98.1 Labs: Laboratory Tests Test 06/01/21 03:10 White Blood Count 8.8 x10^3/uL Red Blood Count 4.37 x10^6/uL Hemoglobin 11.7 g/dL Hematocrit 36.6 % Mean Corpuscular Volume 84 fL Mean Corpuscular Hemoglobin 27 pg Mean Corpuscular Hemoglobin Concent 32 g/dL Red Cell Distribution Width 16.5 % Platelet Count 297 x10^3/uL Total Bilirubin 0.3 mg/dL Direct Bilirubin 0.1 mg/dL Aspartate Amino Transf (AST/SGOT) 161 U/L Alanine Aminotransferase (ALT/SGPT) 238 U/L Alkaline Phosphatase 110 U/L Total Protein 8.4 g/dL Albumin 2.7 g/dL Imaging: MRCP 06/01/21 pending PE: GEN: NAD - on facetime with family LUNGS: CTAB HEART: RRR ABD: NABS, S/ND - she is now pointing to right mid abdomen as location for pain - was previously RUQ/under ribs NEURO/PSYCH: A & O 3, anxious A/P: Right-sided abdominal pain, elevated AST and ALT - cause unclear NIC - unremarkable EGD 12/2020, benign polyps on colonoscopy in 2014 H/o GERD and constipation, s/p madison - on PPI and Miralax (though refused today); no stone on GB path Chronic pain on methadone and NSAID -- MRCP done, awaiting results. Okay to advance diet as previously discussed - notified nurse of her request for oatmeal. Justicifation of Admission Dx: Justifications for Admission: Justification of Admission Dx: Yes LENNY ORDONEZ Jun 01, 2021 11:05
[2021-06-01 15:03] VITALS: BP 120/57
--- NOTE | 2021-06-01 15:08 | RAD ---
EXAM: MRCP W/O CONTRAST 06/01/2021 7:50 AM CLINICAL INDICATION: Elevated liver enzymes, right upper quadrant pain. COMPARISON: CT abdomen and pelvis 05/29/2021 and abdominal ultrasound 05/29/2021 TECHNIQUE: Multiplanar multisequence MR images of the abdomen without contrast per MRCP protocol. FINDINGS: The liver is normal in size measuring 17.4 cm in length. There is no focal liver lesion or hepatic st eatosis. The gallbladder is surgically absent. There is mild prominence of intrahepatic bile ducts. The common bile duct is at the upper limit of normal in caliber measuring 6-7 mm. There is no filling defect in the common bile duct or evidence of obstruction. The pancreas is mildly atrophic. No pancreatic duct dilatation. The spleen and adrenal glands are normal. Kidneys are normal in size. There are a few tiny T2 hyperin tensities in both kidneys measuring up to 2.6 mm, likely cysts. Stomach and visualized portion of the bowel are unremarkable. Unchanged small aortocaval and ne he patis lymph nodes. Trace perihepatic ascites. Mild left basilar opacities, likely atelectasis. There is dextroscoliosis of the lumbar spine with multilevel canal narrowing and lower lumbar fusion. IMPRESSION: 1. Surgically absent gallbladder. 2. Slightly prominent bile ducts likely related to postcholecystectomy state. No evidence of common b ile duct obstruction or stricture. 3. Normal appearance of the liver. Electronically signed by: Roxy Stack MD (06/01/2021 3:06 PM) [id number]
[2021-06-01 17:19] LABS: CREATININE 0.7 mg/dL (0.6-1.0); GFR 81.1; POTASSIUM 3.7 mmol/L (3.5-5.1)
[2021-06-01 19:00] VITALS: BP 130/60
[2021-06-01] MEDS: ALPRAZolam 0.5 MG TABLET PO PRN (20:50)
[2021-06-01 22:53] VITALS: BP 114/63
[2021-06-02 02:41] VITALS: BP 137/74
[2021-06-02] MEDS: POTASSIUM CL 20MEQ D5-0.45NACL 1,000 ML IV SCH (04:30)
[2021-06-02] MEDS: LEVOTHYROXINE 75 MCG TABLET PO SCH (05:56)
[2021-06-02 07:00] VITALS: BP 124/73
[2021-06-02] MEDS: PANTOPRAZOLE 40 MG TABLET.DR. PO SCH (08:19)
[2021-06-02] MEDS: buPROPion XL 150 MG TAB.ER.24H. PO SCH (08:19)
[2021-06-02 08:27] LABS: ALBUMIN 2.5 g/dL (3.4-5.0); DIRECT BILIRUBIN 0.1 mg/dL (0.0-0.2); TOTAL BILIRUBIN 0.3 mg/dL (0.2-1.0); TOTAL PROTEIN 7.7 g/dL (6.4-8.2)
--- NOTE | 2021-06-02 08:30 | PDOC ---
Provider Note Date of Service: DATE: 06/02/21 TIME: 08:28 Provider Note still has RUQ pain but less by 50%- no mass/hernia/rash noted- mrcp ok, today hepatic profile pending- will try lidoderm- pain perhaps related to transaminitis?, cause unclear- will stay off crestor for now and follow Justifications for Admission Other Justification ARIA ONTIVEROS MD Jun 02, 2021 08:29
[2021-06-02] MEDS ORDERED: LIDOCAINE (700MG/PATCH) PATCH. TD SCH (09:00)
--- NOTE | 2021-06-02 09:52 | PDOC ---
Date of Service: DATE: 06/02/21 TIME: 09:45 Subjective: Subjective: Pain is 50% better. Eating and stooling. Hoping for discharge soon. Would like a clean spoon for her oatmeal. Objective: Objective: D/w Dr. Sutton. Pt reports pleuritic-type pain. Vital Signs: Vital Signs Date Time Temp Pulse Resp B/P (MAP) Pulse Ox O2 Delivery O2 Flow Rate FiO2 06/02/21 08:30 Room Air 06/02/21 07:00 98.0 71 17 124/73 (90) 92 2.0 98.0 Labs: Laboratory Tests Test 06/01/21 16:30 06/02/21 06:35 Sodium Level 136 mmol/L Potassium Level 3.7 mmol/L Chloride Level 104 mmol/L Carbon Dioxide Level 30 mmol/L Anion Gap 2 Blood Urea Nitrogen 6 mg/dL Creatinine 0.7 mg/dL Estimated GFR (Cockcroft-Gault) 81.1 Glucose Level 109 mg/dL Calcium Level 8.0 mg/dL Total Bilirubin 0.3 mg/dL Direct Bilirubin 0.1 mg/dL Aspartate Amino Transf (AST/SGOT) 120 U/L Alanine Aminotransferase (ALT/SGPT) 186 U/L Alkaline Phosphatase 100 U/L Total Protein 7.7 g/dL Albumin 2.5 g/dL Imaging: MRCP 06/01 IMPRESSION: 1. Surgically absent gallbladder. 2. Slightly prominent bile ducts likely related to postcholecystectomy state. No evidence of common bile duct obstruction or stricture. 3. Normal appearance of the liver. PE: GEN: NAD LUNGS: CTAB HEART: RRR ABD: soft, non-distended, NEURO/PSYCH: A & O 3 A/P: Right-sided abdominal pain, elevated AST and ALT - better NIC - unremarkable EGD 12/2020, benign polyps on colonoscopy in 2014 H/o GERD and constipation - controlled w/ PPI and Miralax S/p madison and appendectomy Chronic pain on methadone and NSAID, anxiety/depression -- Improving, possible DC tomorrow. Unclear cause of symptoms/abnormal labs - will review w/ Dr. Encarnacion (covering for Dr. Lawrence). Justicifation of Admission Dx: Justifications for Admission: Justification of Admission Dx: Yes LENNY ORDONEZ Jun 02, 2021 09:52
[2021-06-02] MEDS: CITALOPRAM 20 MG TABLET. PO SCH (10:02)
[2021-06-02] MEDS: POLYETHYLENE GLYCOL 3350 17 GM PACKET. PO SCH (10:02)
[2021-06-02] MEDS: DICLOFENAC SODIUM 25 MG TABLET.DR PO SCH (10:02)
[2021-06-02] MEDS: METHADONE 5 MG TABLET. PO SCH ×2 (10:02→20:35)
--- NOTE | 2021-06-02 10:46 | NUR ---
SW following. Discussed with RN, pt from home alone, room air, regular diet. RN advised no SW needs at this time. Discharge planned for tomorrow after repeat labs. SW will continue to follow.
[2021-06-02 11:00] VITALS: BP 107/68
--- NOTE | 2021-06-02 12:47 | NUR ---
Pt reports to this RN that she has been taking aleve every three hours on occasion for pain. Laura, daughter at bedside. Pt informed on the use of aleve/NSAIDs and potential side effects. Daughter concerned with pt's medication use. This RN notified MUNIRA Wright.
[2021-06-02] MEDS: DICYCLOMINE HCL 10 MG CAPSULE PO PRN ×2 (12:58→21:48)
[2021-06-02 16:00] VITALS: BP 128/68
[2021-06-02 19:00] VITALS: BP 143/62
[2021-06-02] MEDS: ALPRAZolam 0.5 MG TABLET PO PRN (20:37)
[2021-06-02] MEDS ORDERED: PATCH REMOVAL. MC SCH (21:00)
[2021-06-02 23:32] VITALS: BP 136/68
[2021-06-03 03:00] VITALS: BP 126/61
[2021-06-03] MEDS: DICYCLOMINE HCL 10 MG CAPSULE PO PRN ×2 (03:07→12:07)
[2021-06-03] MEDS: LEVOTHYROXINE 75 MCG TABLET PO SCH (06:13)
[2021-06-03 07:00] VITALS: BP 146/71
[2021-06-03] MEDS: PANTOPRAZOLE 40 MG TABLET.DR. PO SCH (07:47)
[2021-06-03] MEDS: buPROPion XL 150 MG TAB.ER.24H. PO SCH (07:47)
[2021-06-03 08:18] LABS: ALBUMIN 2.8 g/dL (3.4-5.0); DIRECT BILIRUBIN 0.1 mg/dL (0.0-0.2); TOTAL BILIRUBIN 0.4 mg/dL (0.2-1.0); TOTAL PROTEIN 8.5 g/dL (6.4-8.2)
--- NOTE | 2021-06-03 08:28 | PDOC ---
Provider Note Date of Service: DATE: 06/03/21 TIME: 08:26 Provider Note [id number] Justifications for Admission Other Justification ARIA ONTIVEROS MD Jun 03, 2021 08:27
--- NOTE | 2021-06-03 08:48 | DS ---
DATE OF DISCHARGE: 06/03/2021 HOSPITAL SUMMARY: The patient came in with intractable right upper quadrant abdominal pain of unknown etiology. CT scan of the abdomen and pelvis and sonogram of the right upper quadrant were all unremarkable as was CT scan of the chest, which showed no specific lesions that would account for right upper quadrant pain. MRCP was equally unremarkable. CBC was normal. Sed rate was 38. The transaminases were elevated on admission with AST 262, ALT 342, alkaline phosphatase 124. Bilirubin was normal. At the time of discharge, they were trending down. The alkaline phosphatase was down to 100 and AST 156 and ALT 206. COVID serology was negative as was hepatitis A, B and C studies. Evaluation was done with the assistance of Dr. Lawrence for GI and no specific etiology for the pain was found. Her pain seemed to be about 50% improved at time of discharge and transaminitis was improved as well off of Crestor, so she will be able to be followed as an outpatient at this point. FINAL DIAGNOSES: 1. Right upper quadrant abdominal pain, etiology undetermined. 2. Transaminitis, possibly secondary to statin usage. OPERATIONS, PROCEDURES AND COMPLICATIONS: None. CONSULTATION: Dr. Lawrence. DISPOSITION: All meds remain the same except for she is off of simvastatin and we will follow her liver test as an outpatient. She will use Aleve for right upper quadrant pain, possibly musculoskeletal in origin, but will not take any other NSAID meds along with this as she has taken diclofenac in the past. She is also on methadone for chronic pain from a different provider. Office followup in 1 week for hepatic function profile. PROGNOSIS: Guarded. RODRIGO DR: Will TID: [id number]
[2021-06-03] MEDS: DICLOFENAC SODIUM 25 MG TABLET.DR PO SCH (09:57)
[2021-06-03] MEDS: CITALOPRAM 20 MG TABLET. PO SCH (09:58)
[2021-06-03] MEDS: METHADONE 5 MG TABLET. PO SCH (09:58)
[2021-06-03] MEDS: POLYETHYLENE GLYCOL 3350 17 GM PACKET. PO SCH (09:58)
--- NOTE | 2021-06-03 10:31 | PDOC ---
Date of Service: DATE: 06/03/21 TIME: 10:25 Subjective: Subjective: Pain /10, hurt worse when sitting up. Eating without issue. Stooling "a little" - describes gas and small amount of stool with urine. Says "they didn't give it to me" re: Miralax. Asks if the pain could be a polyp. Objective: Objective: D/w nurse - Kimmie helped yesterday. Has stooled - "blowout" reported. Also has given Miralax. D/w Dr. Sutton - plans for discharge today. Vital Signs: Vital Signs Date Time Temp Pulse Resp B/P (MAP) Pulse Ox O2 Delivery O2 Flow Rate FiO2 06/03/21 07:41 Room Air 06/03/21 07:00 98.5 65 18 146/71 (96) 91 2.0 98.5 Labs: Laboratory Tests Test 06/03/21 07:30 Total Bilirubin 0.4 mg/dL Direct Bilirubin 0.1 mg/dL Aspartate Amino Transf (AST/SGOT) 156 U/L Alanine Aminotransferase (ALT/SGPT) 206 U/L Alkaline Phosphatase 119 U/L Total Protein 8.5 g/dL Albumin 2.8 g/dL PE: GEN: NAD - eating breakfast LUNGS: CTAB HEART: RRR ABD: RUQ tenderness NEURO/PSYCH: A & O 3, depressed A/P: Right-sided abdominal pain, elevated AST and ALT - labs fluctuating, imaging unrevealing - ?SOD NIC - unremarkable EGD 12/2020, benign polyps on colonoscopy in 2014, no obvious bleeding H/o GERD and constipation - on PPI S/p [place] and appendectomy Chronic pain on methadone and NSAIDs (she eventually reported taking Aleve every three hours in addition to Diclofenac) Anxiety/depression -- Varying location of pain (always right-sided but this morning more medial than yesterday afternoon). Agree w/ DC. Continue PPI, adjust constipation treatment as needed (says she takes mineral oil at home) No extra NSAIDs. Justicifation of Admission Dx: Justifications for Admission: Justification of Admission Dx: Yes LENNY ORDONEZ Jun 03, 2021 10:31
--- NOTE | 2021-06-03 10:45 | NUR ---
SW following. Discussed with RN, discharge order for home with self care. RN advised no SW needs.
[2021-06-03 11:00] VITALS: BP 143/66
--- NOTE | 2021-06-03 12:48 | NUR ---
Pt left unit at 1245 by wheelchair via private vehicle, accompanied by daughter Laura. Pt's IV removed without complications, VSS. Discharge paperwork discussed with pt and daughter, including medications, follow-up, and diet. Additional questions addressed.
== END 2021-06-03 12:51 | disposition home or self-care (01) | DRG 948 ==
LOC: ER 15:50 → ED HOLD 23:50 → 5 NORTH 05-30 20:02
PROVIDERS: ADMIT Family Medicine; ATTEND Family Medicine
DX: R74.01 Elevation of levels of liver transaminase levels (principal); E44.0 Moderate protein-calorie malnutrition; E03.9 Hypothyroidism, unspecified; E11.9 Type 2 diabetes mellitus without complications; E78.00 Pure hypercholesterolemia, unspecified; E78.5 Hyperlipidemia, unspecified; F32.A Depression, unspecified; F41.9 Anxiety disorder, unspecified; G89.29 Other chronic pain; I10 Essential (primary) hypertension; J45.909 Unspecified asthma, uncomplicated; K21.00 Gastro-esophageal reflux disease with esophagitis, without bleeding; K29.50 Unspecified chronic gastritis without bleeding; K59.00 Constipation, unspecified; K81.1 Chronic cholecystitis; K82.8 Other specified diseases of gallbladder; M48.02 Spinal stenosis, cervical region; N80.9 Endometriosis, unspecified; Z79.891 Long term (current) use of opiate analgesic; Z86.16 Personal history of COVID-19; Z90.49 Acquired absence of other specified parts of digestive tract; Z90.710 Acquired absence of both cervix and uterus; Z68.31 Body mass index [BMI] 31.0-31.9, adult; Z88.8 Allergy status to other drugs, medicaments and biological substances; R79.89 Other specified abnormal findings of blood chemistry; T50.905A Adverse effect of unspecified drugs, medicaments and biological substances, initial encounter
CPT/HCPCS: 36415; 71260; 74177; 74181; 76705; 80048; 80053; 80076; 81001; 82607; 83540; 83550; 83605; 83690; 83880; 84484; 85025; 85027; 85379; 85610; 85651; 86705; 86709; 86803; 87340; J2405; J3010; J3480; J7030; Q9967; G0378